=== PATIENT | male | born 1955 | race Caucasian/White ===

== ENCOUNTER → 2018-04-22 10:30 | Outpatient (CLI) | payer BC, SELFPAY ==
--- NOTE | 2018-04-22 10:30 | DT_ITS ---
This patient was seen during an EMR downtime April 15, 2018 - April 22, 2018. This patient may have a combination of paper and electronic documentation or all paper documentation. All documentation is viewable within the e-chart portion of [employer] for each patient visit.
--- NOTE | 2018-04-22 10:30 | DT_ITS ---
This patient was seen during an EMR downtime April 15, 2018 - April 22, 2018. This patient may have a combination of paper and electronic documentation or all paper documentation. All documentation is viewable within the e-chart portion of [employer] for each patient visit.
[2018-04-22 12:29] LABS: Absolute Lymphocyte Count 2.78 X10^3/ul (0.83-4.51); Absolute Neutrophil Count 4.4 X10^3/uL (2.0-7.7); Basophil# 0.03 X10^3/uL; Basophil% 0.4 % (0-1); Eosinophil# 0.28 X10^3/uL; Eosinophils% 3.4 % (0-5); Hemoglobin 15.8 g/dl (13.0-16.5); Lymphocyte # 2.78 X10^3/ul (4.0); Lymphocyte % 33.7 % (19-41); Mean Corp Hgb Conc 33.6 g/gl (32-36); Mean Corpuscular Hgb 34.6 pg (27.0-32.0); Mean Corpuscular Volume 102.8 fL (80-94); Mean Platelet Vol. 10.5 fl (6.2-12.0); Monocyte# 0.74 X10^3/uL; Neutrophil # 4.41 X10^3/uL (2.7-7.7); Neutrophil % 53.3 % (47-70); Platelet Count 227 K/mm3 (150-450); RBC Distribution Width CV 12.1 % (11.6-14.6); RBC Distribution Width SD 45.3 fl (35.1-43.9); Red Blood Count 4.57 M/mm3 (4.6-6.2); White Blood Count 8.3 K/mm3 (4.4-11.0)
[2018-04-22 12:40] LABS: POSITIVE COUNT NO; POSITIVE DIFFERENTIAL NO; POSITIVE MORPHOLOGY NO
[2018-04-22 12:56] LABS: ALB/GLOB Ratio 1.1 RATIO (0.9-2.4); AST(SGOT) 39 U/L (15-37); Alanine Aminotransfer ALT/SGPT 34 U/L (16-61); Albumin, Serum 3.7 g/dL (3.2-5.0); Alkaline Phosphatase 130 U/L (45-117); Anion Gap 10 (5-15); BUN 7 mg/dL (7-18); BUN/Creat Ratio 8.1 RATIO (10-20); Calcium,Total 8.6 mg/dL (8.5-10.1); Chloride 110 mmol/L (98-107); Creatinine, Serum 0.86 mg/dL (0.70-1.30); EST Glomerular Filtration Rate 95 mL/min (>60); Est Glom Filt Rate - Afr Amer 115 mL/min (>60); Globulin 3.4 g/dL (2.2-4.2); Glucose 89 mg/dL (74-106); Potassium 4.2 mmol/L (3.5-5.1); Protein, Total 7.1 g/dL (6.4-8.2); Sodium Level 144 mmol/L (136-145); Uric Acid 5.6 mg/dL (3.5-7.2)
== END ==
PROVIDERS: Family Provider Family Medicine; PCP Family Medicine; Visit Provider Internal Medicine Rheumatology
DX: M06.4 Inflammatory polyarthropathy (principal); M10.00 Idiopathic gout, unspecified site; M17.0 Bilateral primary osteoarthritis of knee
CPT/HCPCS: 36415; 80053; 84550; 85025

== ENCOUNTER 2018-07-08 17:07 | Emergency (ER) | payer BC, SELFPAY ==
[2018-07-08 17:08] VITALS: BP 143/80; PULSE 82; RESP 16; TEMP 37.6; O2SAT 96; BMI 30.1
[2018-07-08] MEDS: Morphine 4 MG/ML Syringe IM (17:48)
[2018-07-08] MEDS: 0.9% Normal Saline 1,000 ML 1000 ML IV (17:48)
[2018-07-08] MEDS: Ondansetron 4 MG/2 ML Vial IV (17:48)
[2018-07-08 18:05] LABS: Absolute Lymphocyte Count 3.21 X10^3/ul (0.83-4.51); Absolute Neutrophil Count 13.3 X10^3/uL (2.0-7.7); Basophil# 0.04 X10^3/uL; Basophil% 0.2 % (0-1); Eosinophil# 0.19 X10^3/uL; Eosinophils% 1.1 % (0-5); Hematocrit 41.7 % (40-54); Hemoglobin 13.5 g/dl (13.0-16.5); Lymphocyte # 3.21 X10^3/ul (4.0); Mean Corp Hgb Conc 32.4 g/gl (32-36); Mean Platelet Vol. 9.4 fl (6.2-12.0); Monocyte# 0.98 X10^3/uL; Monocyte% 5.5 % (0-10); Neutrophil # 13.26 X10^3/uL (2.7-7.7); Neutrophil % 74.5 % (47-70); Platelet Count 319 K/mm3 (150-450); RBC Distribution Width CV 12.5 % (11.6-14.6); RBC Distribution Width SD 46.4 fl (35.1-43.9); Red Blood Count 4.09 M/mm3 (4.6-6.2); White Blood Count 17.8 K/mm3 (4.4-11.0)
[2018-07-08 18:08] LABS: POSITIVE COUNT NO; POSITIVE DIFFERENTIAL NO; POSITIVE MORPHOLOGY NO
[2018-07-08 18:19] LABS: Anion Gap 9 (5-15); BUN 12 mg/dL (7-18); BUN/Creat Ratio 10.9 RATIO (10-20); Calcium,Total 9.2 mg/dL (8.5-10.1); Chloride 106 mmol/L (98-107); EST Glomerular Filtration Rate 71 mL/min (>60); Est Glom Filt Rate - Afr Amer 86 mL/min (>60); Estimated Creatinine Clearance 72.26 ml/min; Glucose 142 mg/dL (74-106); Potassium 3.6 mmol/L (3.5-5.1); Sodium Level 141 mmol/L (136-145)
[2018-07-08] MEDS: Diphth,Pertuss(Acell),Tet Vac 0.5 ML Vial IM (18:42)
[2018-07-08] MEDS: HYDROmorphone 1 MG/ML Syringe IV (18:44)
[2018-07-08 18:47] VITALS: BP 112/64; PULSE 84; RESP 14; O2SAT 94
[2018-07-08 19:10] VITALS: BP 113/66; PULSE 89; RESP 22; O2SAT 96
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
[2018-07-08] MEDS: oxyCODONE 5 MG Tablet 10 MG PO (19:41)
[2018-07-08 19:43] VITALS: BP 111/88; PULSE 85; RESP 19; O2SAT 95
== END 2018-07-08 20:00 | disposition home or self-care (01) ==
LOC: ED 17:38
PROVIDERS: Emergency Provider Emergency Medicine; Family Provider Family Medicine; PCP Family Medicine
DX: S42.191A Fracture of other part of scapula, right shoulder, initial encounter for closed fracture (principal); S22.41XA Multiple fractures of ribs, right side, initial encounter for closed fracture; S00.03XA Contusion of scalp, initial encounter; I10 Essential (primary) hypertension; Z79.899 Other long term (current) drug therapy; V20.0XXA Motorcycle driver injured in collision with pedestrian or animal in nontraffic accident, initial encounter; Y93.55 Activity, bike riding; Y92.410 Unspecified street and highway as the place of occurrence of the external cause; Y99.8 Other external cause status
CPT/HCPCS: 70450; 71250; 72125; 73610; 80048; 85025; 90471; 90715; 96361; 96372; 96374; 96375; 99285; J7030; A4216

== ENCOUNTER 2018-07-09 13:21 | Emergency (ER) | payer BC, SELFPAY ==
[2018-07-09 13:23] VITALS: BP 146/62; PULSE 84; RESP 16; TEMP 37.2; O2SAT 92; BMI 27.6
--- NOTE | 2018-07-09 14:25 | NURSING ---
NO OLD EKGS
[2018-07-09] MEDS: Morphine 4 MG/ML Syringe IV (14:49)
[2018-07-09] MEDS: 0.9% Normal Saline 1,000 ML 150 ML IV (14:49)
[2018-07-09] MEDS: Ondansetron 4 MG/2 ML Vial IV (14:49)
[2018-07-09 14:50] LABS: Absolute Lymphocyte Count 1.23 X10^3/ul (0.83-4.51); Basophil# 0.02 X10^3/uL; Basophil% 0.2 % (0-1); Eosinophil# 0.06 X10^3/uL; Eosinophils% 0.5 % (0-5); Hemoglobin 12.9 g/dl (13.0-16.5); Lymphocyte # 1.23 X10^3/ul (4.0); Lymphocyte % 9.6 % (19-41); Mean Corp Hgb Conc 32.3 g/gl (32-36); Mean Corpuscular Hgb 33.1 pg (27.0-32.0); Mean Corpuscular Volume 102.6 fL (80-94); Mean Platelet Vol. 9.3 fl (6.2-12.0); Monocyte# 1.43 X10^3/uL; Monocyte% 11.2 % (0-10); Neutrophil # 9.99 X10^3/uL (2.7-7.7); POSITIVE COUNT NO; POSITIVE DIFFERENTIAL NO; POSITIVE MORPHOLOGY NO; Platelet Count 253 K/mm3 (150-450); RBC Distribution Width CV 12.8 % (11.6-14.6); RBC Distribution Width SD 47.4 fl (35.1-43.9); White Blood Count 12.8 K/mm3 (4.4-11.0)
[2018-07-09 15:05] LABS: ALB/GLOB Ratio 1.1 RATIO (0.9-2.4); AST(SGOT) 24 U/L (15-37); Alanine Aminotransfer ALT/SGPT 31 U/L (16-61); Albumin, Serum 3.6 g/dL (3.2-5.0); Alkaline Phosphatase 96 U/L (45-117); Anion Gap 11 (5-15); BUN 11 mg/dL (7-18); BUN/Creat Ratio 13.8 RATIO (10-20); Calcium,Total 8.6 mg/dL (8.5-10.1); Chloride 107 mmol/L (98-107); EST Glomerular Filtration Rate 104 mL/min (>60); Est Glom Filt Rate - Afr Amer 126 mL/min (>60); Estimated Creatinine Clearance 99.35 ml/min; Globulin 3.3 g/dL (2.2-4.2); Glucose 107 mg/dL (74-106); Potassium 3.9 mmol/L (3.5-5.1); Protein, Total 6.9 g/dL (6.4-8.2); Sodium Level 142 mmol/L (136-145)
[2018-07-09 15:28] VITALS: BP 142/63; PULSE 80; RESP 17; O2SAT 95
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
--- NOTE | 2018-07-09 16:33 | ED.DEP ---
ED Disposition - Plan for ED Patient: Chief Complaint: Other, Pain/Inj Instructions: ED Fx Rib, Carotid Artery Problems: Blockage Referrals: Arnaldo Agudelo MD [Primary Care Provider] - 3-5 Days
[2018-07-09 16:50] VITALS: BP 145/87; PULSE 85; RESP 15; O2SAT 98
== END 2018-07-09 17:00 | disposition short-term general hospital (02) ==
PROVIDERS: Emergency Provider Emergency Medicine; Family Provider Family Medicine; PCP Family Medicine
DX: I65.23 Occlusion and stenosis of bilateral carotid arteries (principal); R07.89 Other chest pain; S22.41XD Multiple fractures of ribs, right side, subsequent encounter for fracture with routine healing; S42.101D Fracture of unspecified part of scapula, right shoulder, subsequent encounter for fracture with routine healing; V29.9XXD Motorcycle rider (driver) (passenger) injured in unspecified traffic accident, subsequent encounter
CPT/HCPCS: 70498; 71275; 80053; 84484; 85025; 93005; 96361; 96374; 96375; 99284; J7030; Q9967; A4216; J2405

== ENCOUNTER 2018-07-11 08:27 | Emergency (ER) | payer BC, SELFPAY ==
[2018-07-11 08:28] VITALS: BP 184/72; PULSE 96; RESP 30; TEMP 36.8; O2SAT 93; BMI 27.6
[2018-07-11 09:17] VITALS: O2SAT 94
[2018-07-11] MEDS: Ondansetron 4 MG/2 ML Vial IV (09:19)
[2018-07-11] MEDS: morphine 8 MG/ML Syringe 6 MG IV ×2 (09:19→11:05)
[2018-07-11 10:17] VITALS: BP 144/81; PULSE 91; RESP 28; O2SAT 94
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
[2018-07-11 10:37] LABS: Absolute Lymphocyte Count 1.29 X10^3/ul (0.83-4.51); Absolute Neutrophil Count 16.3 X10^3/uL (2.0-7.7); Basophil# 0.03 X10^3/uL; Basophil% 0.2 % (0-1); Eosinophil# 0.02 X10^3/uL; Eosinophils% 0.1 % (0-5); Hematocrit 28.9 % (40-54); Hemoglobin 9.4 g/dl (13.0-16.5); Lymphocyte # 1.29 X10^3/ul (4.0); Lymphocyte % 6.5 % (19-41); Mean Corp Hgb Conc 32.5 g/gl (32-36); Mean Corpuscular Hgb 33.3 pg (27.0-32.0); Mean Corpuscular Volume 102.5 fL (80-94); Mean Platelet Vol. 9.9 fl (6.2-12.0); Neutrophil # 16.32 X10^3/uL (2.7-7.7); Neutrophil % 81.8 % (47-70); Platelet Count 280 K/mm3 (150-450); RBC Distribution Width CV 12.7 % (11.6-14.6); RBC Distribution Width SD 47.6 fl (35.1-43.9); Red Blood Count 2.82 M/mm3 (4.6-6.2); White Blood Count 19.9 K/mm3 (4.4-11.0)
[2018-07-11 10:40] LABS: Differential Indicated SCAN CRITERIA MET; POSITIVE COUNT NO; POSITIVE DIFFERENTIAL YES; POSITIVE MORPHOLOGY NO
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
[2018-07-11 10:45] LABS: Anion Gap 11 (5-15); BUN 20 mg/dL (7-18); BUN/Creat Ratio 12.7 RATIO (10-20); Calcium,Total 8.1 mg/dL (8.5-10.1); Chloride 103 mmol/L (98-107); Creatinine, Serum 1.58 mg/dL (0.70-1.30); EST Glomerular Filtration Rate 47 mL/min (>60); Est Glom Filt Rate - Afr Amer 57 mL/min (>60); Estimated Creatinine Clearance 50.31 ml/min; Glucose 110 mg/dL (74-106); Potassium 4.5 mmol/L (3.5-5.1); Sodium Level 139 mmol/L (136-145)
[2018-07-11 11:09] LABS: Differential Comment SCANNED
[2018-07-11 11:16] VITALS: BP 125/85; PULSE 94; RESP 22; O2SAT 92
[2018-07-11 11:36] VITALS: BP 125/85; PULSE 94; RESP 22; O2SAT 92
== END 2018-07-11 11:39 | disposition short-term general hospital (02) ==
LOC: ED 08:56
PROVIDERS: Emergency Provider Emergency Medicine; Family Provider Family Medicine; PCP Family Medicine
DX: S27.2XXD Traumatic hemopneumothorax, subsequent encounter (principal); R93.5 Abnormal findings on diagnostic imaging of other abdominal regions, including retroperitoneum; S22.41XD Multiple fractures of ribs, right side, subsequent encounter for fracture with routine healing; S42.101D Fracture of unspecified part of scapula, right shoulder, subsequent encounter for fracture with routine healing; I10 Essential (primary) hypertension; M19.90 Unspecified osteoarthritis, unspecified site; Z79.891 Long term (current) use of opiate analgesic; Z79.899 Other long term (current) drug therapy; V29.9XXD Motorcycle rider (driver) (passenger) injured in unspecified traffic accident, subsequent encounter
CPT/HCPCS: 71045; 71250; 74177; 80048; 85025; 93005; 96374; 96375; 96376; 99285; J7050; Q9967; A4216; J2405

== ENCOUNTER → 2018-10-17 11:03 | Outpatient (CLI) | payer BC, SELFPAY ==
[2018-10-17 12:00] LABS: Absolute Lymphocyte Count 2.63 X10^3/ul (0.83-4.51); Absolute Neutrophil Count 4.6 X10^3/uL (2.0-7.7); Basophil# 0.04 X10^3/uL; Basophil% 0.5 % (0-1); Eosinophils% 4.6 % (0-5); Hemoglobin 11.6 g/dl (13.0-16.5); Lymphocyte # 2.63 X10^3/ul (4.0); Lymphocyte % 30.3 % (19-41); Mean Corp Hgb Conc 31.4 g/gl (32-36); Mean Corpuscular Hgb 28.2 pg (27.0-32.0); Mean Corpuscular Volume 89.8 fL (80-94); Mean Platelet Vol. 9.9 fl (6.2-12.0); Monocyte# 0.95 X10^3/uL; Monocyte% 10.9 % (0-10); Neutrophil # 4.64 X10^3/uL (2.7-7.7); Neutrophil % 53.4 % (47-70); Platelet Count 352 K/mm3 (150-450); RBC Distribution Width CV 13.1 % (11.6-14.6); RBC Distribution Width SD 42.1 fl (35.1-43.9); Red Blood Count 4.12 M/mm3 (4.6-6.2); White Blood Count 8.7 K/mm3 (4.4-11.0)
[2018-10-17 12:08] LABS: POSITIVE COUNT NO; POSITIVE DIFFERENTIAL NO; POSITIVE MORPHOLOGY NO
[2018-10-17 12:21] LABS: ALB/GLOB Ratio 1.2 RATIO (0.9-2.4); AST(SGOT) 21 U/L (15-37); Alanine Aminotransfer ALT/SGPT 22 U/L (16-61); Albumin, Serum 3.8 g/dL (3.2-5.0); Alkaline Phosphatase 145 U/L (45-117); Anion Gap 6 (5-15); BUN 14 mg/dL (7-18); BUN/Creat Ratio 16.8 RATIO (10-20); Calcium,Total 8.4 mg/dL (8.5-10.1); Chloride 107 mmol/L (98-107); Creatinine, Serum 0.83 mg/dL (0.70-1.30); EST Glomerular Filtration Rate 99 mL/min (>60); Est Glom Filt Rate - Afr Amer 119 mL/min (>60); Globulin 3.1 g/dL (2.2-4.2); Glucose 106 mg/dL (74-106); Potassium 4.1 mmol/L (3.5-5.1); Protein, Total 6.9 g/dL (6.4-8.2); Sodium Level 139 mmol/L (136-145); Uric Acid 5.1 mg/dL (3.5-7.2)
== END ==
PROVIDERS: Family Provider Family Medicine; PCP Family Medicine; Referring Provider Internal Medicine Rheumatology; Visit Provider Internal Medicine Rheumatology
DX: M06.4 Inflammatory polyarthropathy (principal); M10.00 Idiopathic gout, unspecified site; M17.0 Bilateral primary osteoarthritis of knee
CPT/HCPCS: 36415; 80053; 84550; 85025

== ENCOUNTER → 2019-04-10 | Outpatient (CLI) | payer BC, SELFPAY ==
[2019-04-10 15:46] LABS: Absolute Lymphocyte Count 2.91 X10^3/ul (0.83-4.51); Absolute Neutrophil Count 6.3 X10^3/uL (2.0-7.7); Basophil# 0.04 X10^3/uL; Basophil% 0.4 % (0-1); Eosinophil# 0.44 X10^3/uL; Eosinophils% 4.2 % (0-5); Hematocrit 39.2 % (40-54); Hemoglobin 12.8 g/dl (13.0-16.5); Lymphocyte # 2.91 X10^3/ul (4.0); Mean Corp Hgb Conc 32.7 g/gl (32-36); Mean Corpuscular Hgb 29.5 pg (27.0-32.0); Mean Corpuscular Volume 90.3 fL (80-94); Mean Platelet Vol. 10.9 fl (6.2-12.0); Monocyte# 0.67 X10^3/uL; Monocyte% 6.4 % (0-10); Neutrophil # 6.32 X10^3/uL (2.7-7.7); Neutrophil % 60.7 % (47-70); Platelet Count 324 K/mm3 (150-450); RBC Distribution Width CV 13.9 % (11.6-14.6); Red Blood Count 4.34 M/mm3 (4.6-6.2); White Blood Count 10.4 K/mm3 (4.4-11.0)
[2019-04-10 15:49] LABS: POSITIVE COUNT NO; POSITIVE DIFFERENTIAL NO; POSITIVE MORPHOLOGY NO
[2019-04-10 15:56] LABS: ALB/GLOB Ratio 1.1 RATIO (0.9-2.4); AST(SGOT) 16 U/L (15-37); Alanine Aminotransfer ALT/SGPT 27 U/L (16-61); Albumin, Serum 3.7 g/dL (3.2-5.0); Alkaline Phosphatase 164 U/L (45-117); Anion Gap 7 (5-15); BUN 12 mg/dL (7-18); BUN/Creat Ratio 10.9 RATIO (10-20); Calcium,Total 8.7 mg/dL (8.5-10.1); Chloride 106 mmol/L (98-107); EST Glomerular Filtration Rate 71 mL/min (>60); Est Glom Filt Rate - Afr Amer 86 mL/min (>60); Globulin 3.5 g/dL (2.2-4.2); Glucose 117 mg/dL (74-106); Potassium 3.7 mmol/L (3.5-5.1); Protein, Total 7.2 g/dL (6.4-8.2); Sodium Level 141 mmol/L (136-145); Uric Acid 5.6 mg/dL (3.5-7.2)
== END | disposition home or self-care (01) ==
PROVIDERS: Family Provider Family Medicine; PCP Family Medicine; Referring Provider Internal Medicine Rheumatology; Visit Provider Internal Medicine Rheumatology
DX: M06.4 Inflammatory polyarthropathy (principal); M10.00 Idiopathic gout, unspecified site; M17.0 Bilateral primary osteoarthritis of knee
CPT/HCPCS: 36415; 80053; 84550; 85025

== ENCOUNTER → 2019-04-14 | Outpatient (CLI) | payer BC, SELFPAY ==
--- NOTE | 2019-04-14 09:46 | RAD_ITS ---
STUDY: X-RAY - PELVIS REASON FOR EXAM: Male, 63 years old. Right hip pain TECHNIQUE: One view of the pelvis was obtained. COMPARISON: None. FINDINGS: There is a non-specific bowel gas pattern. Normal visualized soft tissue structures. Lower lumbar fusions and laminectomies. Normal bilateral iliac wings, sacroiliac joints and visualized sacrum. Normal visualized bilateral superior and inferior pubic rami. Normal pubic symphysis. Normal ischial tuberosities. 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 Normal visualized left femoral head. Normal left acetabulum. Normal left hip joint. 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 Electronically Signed: Iker Sapp MD at 10:32 EDT Tel , Service support ,
== END | disposition home or self-care (01) ==
LOC: HPRAD 09:45
PROVIDERS: Family Provider Family Medicine; PCP Family Medicine; Referring Provider Internal Medicine Rheumatology; Visit Provider Internal Medicine Rheumatology
DX: M06.4 Inflammatory polyarthropathy (principal); M10.00 Idiopathic gout, unspecified site; M17.0 Bilateral primary osteoarthritis of knee; I65.23 Occlusion and stenosis of bilateral carotid arteries
CPT/HCPCS: 72170

== ENCOUNTER → 2019-06-18 08:48 | Outpatient (CLI) | payer BC, SELFPAY ==
--- NOTE | 2019-06-18 08:51 | CDU_ITS ---
Reason For Study: STENOSIS Rt. Velocities/BP Lt. Velocities/BP Prox CCA 84/17 cm/sec. Prox CCA 80/16 cm/sec. Mid CCA 57/8 cm/sec. Mid CCA 78/18 cm/sec. Dist CCA 57/15 cm/sec. Dist CCA 60/14 cm/sec. Prox ICA 109/28 cm/sec. Prox ICA 191/51 cm/sec. Mid ICA 188/43 cm/sec. Mid ICA 154/43 cm/sec. Dist ICA 94/25 cm/sec. Dist ICA 79/28 cm/sec. Rt. ICA/CCA = 2.2. Lt. ICA/CCA = 2.4. Prox ICA not well visualized due to Prox ICA not visualized due to acoustic acoustic shadowing. shadowing. Prox ECA 74/11 cm/sec. Prox ECA 115/19 cm/sec. Rt. Vert. 60/18 cm/sec. Lt. Vert. 56/12 cm/sec. Right Extracranial There is heterogeneous, irregular atherosclerotic plaque noted in the right common carotid artery. There is heterogeneous, irregular atherosclerotic plaque noted in the right internal carotid artery. The atherosclerotic plaque causes acoustic shadowing. There is heterogeneous, irregular atherosclerotic plaque noted in the right external carotid artery. The atherosclerotic plaque causes acoustic shadowing. Antegrade flow is noted in the right vertebral artery. Left Extracranial There is heterogeneous, irregular atherosclerotic plaque noted in the left common carotid artery. There is heterogeneous, irregular atherosclerotic plaque noted in the left internal carotid artery. The atherosclerotic plaque causes acoustic shadowing. There is heterogeneous, irregular atherosclerotic plaque noted in the left external carotid artery. Antegrade flow is noted in the left vertebral artery. Procedure Carotid Duplex [id number]. The study was technically difficult. Exam performed in department. Interpretation Summary Moderate (50-69%) stenosis right extracranial internal carotid. Moderate (50-69%) stenosis left extracranial internal carotid. Flow within the vertebral arteries is antegrade bilaterally. Ordering Physician: Robin Gautam Referring Physician: SHARON LACY Performed By: Lydia Donahue, JANETH, RVT
== END ==
PROVIDERS: Family Provider Family Medicine; PCP Family Medicine; Referring Provider Surgery Vascular Surgery; Visit Provider Surgery Vascular Surgery
DX: M19.90 Unspecified osteoarthritis, unspecified site (principal); I10 Essential (primary) hypertension; I65.23 Occlusion and stenosis of bilateral carotid arteries
CPT/HCPCS: 93880

== ENCOUNTER → 2019-07-03 | Outpatient (CLI) | payer BC, SELFPAY ==
[2019-07-03 16:23] LABS: Absolute Lymphocyte Count 3.86 X10^3/uL (0.83-4.51); Absolute Neutrophil Count 8.3 X10^3/uL (2.0-7.7); Basophil# 0.06 X10^3/uL; Basophil% 0.4 % (0-1); Eosinophil# 0.66 X10^3/uL; Eosinophils% 4.8 % (0-5); Hematocrit 39.1 % (40-54); Hemoglobin 12.4 g/dL (13.0-16.5); Lymphocyte # 3.86 X10^3/ul (4.0); Lymphocyte % 28.2 % (19-41); Mean Corp Hgb Conc 31.7 g/dL (32-36); Mean Corpuscular Hgb 30.2 pg (27.0-32.0); Mean Corpuscular Volume 95.1 fL (80-94); Mean Platelet Vol. 9.6 fl (6.2-12.0); Monocyte# 0.67 X10^3/uL; Monocyte% 4.9 % (0-10); NRBC Flagged by Analyzer 0 % (0-5); Neutrophil # 8.32 X10^3/uL (2.7-7.7); Platelet Count 354 K/mm3 (150-450); RBC Distribution Width CV 13.8 % (11.6-14.6); RBC Distribution Width SD 47.8 fl (35.1-43.9); Red Blood Count 4.11 M/mm3 (4.6-6.2); White Blood Count 13.7 K/mm3 (4.4-11.0)
== END | disposition home or self-care (01) ==
LOC: LAB 15:42
PROVIDERS: Family Provider Family Medicine; PCP Family Medicine; Referring Provider Specialist; Visit Provider Specialist
DX: Z01.812 Encounter for preprocedural laboratory examination (principal); M87.051 Idiopathic aseptic necrosis of right femur
CPT/HCPCS: 36415; 85025

== ENCOUNTER 2019-08-06 08:19 | Inpatient (IN) | payer BC, MEDICARE, SELFPAY ==
[2019-07-25 15:09] VITALS: BP 155/69; PULSE 68; RESP 17; TEMP 36.6; O2SAT 95; BMI 36.8
--- NOTE | 2019-07-25 15:40 | SDCEKG_ITS ---
Test Reason : Blood Pressure : / mmHG Vent. Rate : 062 BPM Atrial Rate : 062 BPM P-R Int : 182 ms QRS Dur : 138 ms QT Int : 416 ms P-R-T Axes : 041 047 027 degrees QTc Int : 422 ms Normal sinus rhythm Right bundle branch block Abnormal ECG Confirmed by BROOKE FRIEDMAN, LELA ([id number]), editor in chief newspaper GUILLE CASTELLANO ([id number]) on 07/29/2019 11:42:12 AM [facility] Confirmed By:LELA COX MD
--- NOTE | 2019-07-25 16:15 | RAD_ITS ---
STUDY: X-RAY CHEST REASON FOR EXAM: Male, 63 years old. PRE OP FOR HIP SURGERY. TECHNIQUE: Frontal and lateral views of the chest. COMPARISON: 07/11/2018. FINDINGS: Elevated right hemidiaphragm. Pleural thickening along the periphery of the right hemithorax related to previous rib fractures. No definite infiltrates or effusions. Stable calcified granuloma of the right upper lobe. No gross effusions. Normal size heart. Normal mediastinum and nader. Normal visualized pulmonary arteries. There is atherosclerotic calcification of the aortic arch with tortuosity. There are diffuse degenerative changes of the visualized thoracic spine. Normal visualized ribs, clavicles, and shoulders. There is no demonstrated abnormality of the visualized soft tissue structures of the upper abdomen. RAD/Chest PA and Lateral IMPRESSION: No definite acute abnormality. Pleural-parenchymal scarring in the lower right hemithorax. Electronically Signed: Joseph [facility] MD at 16:47 EDT , Service support ,
[2019-07-25 16:32] LABS: Absolute Neutrophil Count 8.5 X10^3/uL (2.0-7.7); Basophil# 0.07 X10^3/uL; Basophil% 0.5 % (0-1); Eosinophil# 0.72 X10^3/uL; Eosinophils% 5.1 % (0-5); Hematocrit 36.1 % (40-54); Hemoglobin 11.1 g/dL (13.0-16.5); Lymphocyte % 26.2 % (19-41); Mean Corp Hgb Conc 30.7 g/dL (32-36); Mean Corpuscular Hgb 29.4 pg (27.0-32.0); Mean Corpuscular Volume 95.8 fL (80-94); Mean Platelet Vol. 9.8 fl (6.2-12.0); Monocyte# 1.05 X10^3/uL; Monocyte% 7.4 % (0-10); NRBC Flagged by Analyzer 0 % (0-5); Neutrophil % 60.1 % (47-70); Platelet Count 360 K/mm3 (150-450); RBC Distribution Width CV 13.3 % (11.6-14.6); RBC Distribution Width SD 46.5 fl (35.1-43.9); Red Blood Count 3.77 M/mm3 (4.6-6.2); White Blood Count 14.1 K/mm3 (4.4-11.0)
[2019-07-25 16:33] LABS: AST(SGOT) 14 U/L (15-37); Alanine Aminotransfer ALT/SGPT 24 U/L (16-61); Alkaline Phosphatase 129 U/L (45-117); Anion Gap 4 (5-15); BUN 15 mg/dL (7-18); BUN/Creat Ratio 16.5 RATIO (10-20); Bilirubin, Direct 0.09 mg/dL (0.00-0.30); Chloride 108 mmol/L (98-107); Creatinine, Serum 0.91 mg/dL (0.70-1.30); EST Glomerular Filtration Rate 89 mL/min (>60); Est Glom Filt Rate - Afr Amer 108 mL/min (>60); Estimated Creatinine Clearance 83.56 ml/min; Globulin 3.1 g/dL (2.2-4.2); Glucose 94 mg/dL (74-106); Potassium 4.4 mmol/L (3.5-5.1); Protein, Total 7.1 g/dL (6.4-8.2); Sodium Level 141 mmol/L (136-145)
[2019-07-25 17:33] LABS: International Normalized Ratio 1.1; Partial Thromboplast Time 33.4 Seconds (24.1-36.2); Prothrombin Time (Protime)PT. 13.5 SECONDS (11.7-14.9)
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
[2019-08-06] VITALS (14 sets, daily range): BP systolic 110–166; BP diastolic 52–81; PULSE 65–92; RESP 16–18; TEMP 35.8–36.8; O2SAT 95–100; BMI 36.8; BMI 37.0
--- NOTE | 2019-08-06 | IMM_PTH ---
PATIENT: GEOVANI WRIGHT LOC: MS3 U#:[id number] AGE/SX: 63/M ROOM: MS319 RE08/06/[address]: Dr. Flex Rodrigues MD : 1955 BED: 1 DIS: 08/07/2019 SPEC #: [id number] RECD: 08/11/19 12:12 STATUS: RAMIRO REQ #: [id number] TEENA: 08/06/19 00:[address]: Flex Rodrigues DEPT: IMMUNOHISTOCHEMISTRY RECD BY: Kamla Meléndez ENTERED: 08/11/19 12:13 SP TYPE: IMMUNO OTHR DR: Dr. Arnaldo Agudelo MD Tissues: Femur, NOS Procedures: CD20 (add) CD45 (add) CD5 (add) CD79A (add) CD3 (initial) PHYSICIAN & INSTITUTION [place] [address] SPECIMEN INFORMATION: Tissue Source: Right femoral head Clinical Info: Right hip osteoarthritis Specimen Number: [id number] CPT code: 67715, 75564 x4 METHODOLOGY: Deparaffinized sections of prefer/formalin-fixed tissue or PAP/DQ stained slides are incubated with monoclonal/polyclonal antibodies/oligonucleotide probes. Localization is made via biotin free immunoperoxidase method. Appropriate controls are performed and reacted as expected. Results on target cell population are indicated in the following table: RESULTS: ANTIBODY / CLONE RESULT CD3 (PS1) positive CD5 (SP10) positive CD20 (L26) negative CD79a (11E3) positive, a few cells CD45 (RP2/18) positive These tests were developed and their performance characteristics determined by [facility]. They may not have been cleared or approved by the U.S. Food and Drug Administration. The FDA has determined that such clearance or approval is not necessary. The above immunohistochemical/dualISH markers are ordered and reviewed by the pathologist. INTERPRETATION: Right femoral head, total hip replacement/resection: Lymphoid aggregates, predominantly T-cells in nature, favor benign. RAFY:flori 08/12/19
[2019-08-06] MEDS: Acetaminophen 500 MG Tablet 1000 MG PO ×3 (08:59→20:56)
[2019-08-06] MEDS: Scopolamine 1mg/72hr Patch 1 PATCH TRANSDERM. (08:59)
[2019-08-06] MEDS: Celecoxib 200 MG Capsule 400 MG PO (09:00)
[2019-08-06] MEDS: Gabapentin 600 MG Tablet PO (09:01)
[2019-08-06] MEDS: Magnesium Sulfate 4gm/100mL 4 GM/100 ML IV.SOLN. IV (09:06)
[2019-08-06] MEDS: Lactated Ringers 1,000 ML 100 ML IV (09:14)
[2019-08-06 09:21] LABS: Bedside Glucose 127 mg/dL (70-110)
[2019-08-06] MEDS: Cefazolin 2 GM in 0.9% Normal Saline 100 ML IV (10:25)
--- NOTE | 2019-08-06 10:30 | RAD_ITS ---
STUDY: X-RAY - PELVIS AND RIGHT HIP REASON FOR EXAM: Male, 63 years old. Fluoroscopic guided hip replacement TECHNIQUE: 2 fluoroscopic guided views of the pelvis and hip. 5 seconds of fluoroscopic time utilized COMPARISON: None. FINDINGS: Right hip prosthesis noted in anatomic alignment and position.. RAD/Hip 1 view with Pelvis IMPRESSION: Status post right hip prosthesis placement Electronically Signed: Fredis Donohue MD at 21:42 EDT , Service support ,
--- NOTE | 2019-08-06 10:30 | HIP_PTH ---
PATIENT: GEOVANI WRIGHT LOC: MS3 U#:[id number] AGE/SX: 63/M ROOM: MS319 RE08/06/[address]: Dr. Flex Rodrigues MD : 1955 BED: 1 DIS: 08/07/2019 SPEC #: [id number] RECD: 08/06/19 14:09 STATUS: RAMIRO REQ #: [id number] TEENA: 08/06/19 10:[address]: Flex Rodrigues DEPT: SURGICAL PATHOLOGY RECD BY: Lev Abel ENTERED: 08/06/19 14:32 SP TYPE: TOTAL HIP OTHR DR: Dr. Arnaldo Agudelo MD Tissues: Hip, NOS Procedures: Decalcification bone/plaque Surgery Specimen Level IV HEADER OPERATION: ERAS, total hip anterior approach PRE-OP DIAGNOSIS: Right hip osteoarthritis TISSUE SUBMITTED: Right femoral head MICROSCOPIC DIAGNOSIS Right femoral head, total hip replacement/resection: Femoral head with extensive changes consistent with avascular necrosis. Focal degenerative osteoarthritic changes. Lymphoid aggregates, predominantly T-cell in nature, favor benign. See comment. RAFY:flori 08/12/19 COMMENT Immunohistochemistry ([id number]) supports the above diagnosis. Focal acute and chronic inflammation is noted in the area of avascular necrosis. Case has been reviewed in consultation with Dr. Lomeli who concurs with the above diagnosis. IDC:AM MICROSCOPIC DESCRIPTION Slides are reviewed. GROSS DESCRIPTION Received is one container labeled with the patient's name and designated right femoral head. The specimen consists of a ross femoral head measuring 5 x 5 x 5 cm. The portion of femoral neck measures up to 1 cm in length. A portion of articular cartilage is partly disrupted from the underlying bone. Cut sections reveal yellowish surface consistent with avascular fat necrosis. Focal areas of erosion are noted. No soft tissue is identified. Candy Starch [employer]inter sections are submitted in two cassettes after decalcification. / RAFY:flori 08/06/19 TC:5 CPT: 63820, 40197
[2019-08-06] MEDS: dexAMETHasone 10 MG/ML Vial IV (11:00)
--- NOTE | 2019-08-06 11:57 | OP.PCM_ITS ---
Report of Operation Date of Procedure: 08/06/19 Pre-Operative Diagnosis: Right hip primary osteoarthritis Post-Operative Diagnosis: Right hip avascular necrosis with secondary osteoarthritis Surgery/Procedure Performed:: Right direct anterior minimally invasive total hip replacement Description of Surgical Findings:: Stable hip with equal leg length Intraoperatively with removal of the femoral head we noted delamination consistent with subchondral collapse and avascular necrosis. urology physician assistant: Lucas Law Type of Anesthesia:: Spinal Anesthesiologist: Medardo Veronica Special Medications: 2 g Ancef, 1 g TXA at incision, 1 g TXA closure, 10 mg Decadron, joint cocktail (5 mg Duramorph, 30 mL of 0.5% Ropivicaine, 1000 units of epinephrine, 30 mg of Toradol) Specimen's removed: Femoral head was sent for specimen Estimated Blood Loss (mL): 100 mL Fluids Replaced: 800 mL crystalloid Description of Procedure: Components used: 1. Accolade 2 Ramona femoral stem size 11 132? 2. Ramona trident 2 acetabular shell size 58 mm 3. Ramona X3 polyethylene F 4. [place] Biolox delta 36mm, 0mm femoral head Brief history operative indications: 63 yo m who failed conservative measures for their hip osteoarthritis. X-rays were consistent with osteoarthritis including joint space narrowing, osteophyte formation and subchondral cysts. Total hip replacement was discussed with the patient with risks and benefits including but not limited to blood loss, DVTs, PEs, neurovascular damage, dislocation, general risks of anesthesia including loss of life. Patient demonstrated an understanding medical clearance is obtained the patient was consented for surgery. Procedure: On the date of procedure the patient's R hip was marked in the preoperative area. Patient was then taken back to the operating room where anesthesia assumed control of the C-spine and airway and administered anesthetic. Patient was transferred to the operating table and placed in the supine position. The hips were placed at the break of the bed and a sacral bump was placed. The R lower extremity was then prepped out in a sterile fashion using chlorhexidine while the surgeon scrubbed. The PA was vital in the positioning of the patient. Upon reentering the room the R lower extremity was draped in the standard orthopedic fashion and the incision was marked. A timeout was called and everyone agreed upon the side, the site, the procedure be performed, antibody g iven, and patient's identity. At this time incision was made through skin, subcutaneous tissue, and fat down to fascia. The fascia was then incised and the TFL was retracted laterally. A retractor was placed on the lateral border of the femoral neck. Attention was directed to the inferior portion of the approach and all crossing vessels were identified and appropriately coagulated. A retractor was then placed on the medial portion of the femoral neck. The anterior capsule was then cleared of all soft tissue and then H shaped capsulotomy was made. The retractors were then placed inside the capsule. The femoral neck was identified and a cleanup cut was made. At this time a power corkscrew was used to remove the femoral head. Upon removing the femoral head there was delamination of the articular surface consistent with avascular necrosis and subchondral collapse. Attention was then turned toward the acetabulum where the soft tissues were appropriately retracted and the acetabulum was sequentially reamed to 58 mm. A 58 mm cup was then selected and impacted into place. Acetabular liner was impacted into place and locking mechanism was verified. The position of the acetabular cup was then verified under live fluoroscopy. Attention was then turned to the femur. Soft tissue releases on the medial and lateral femoral neck were appropriately done, the leg was externally rotated and lateralized. A Thomas retractor was placed medially and proximally to the greater trochanter this allowed appropriate visualization and exposure of the femoral canal. Rongeour was then used to remove excess lateral bone. A canal finder and entry broach were used to open the proximal canal. Once we verified we were down the femoral canal we subsequently broached up to a size 11 femur. The appropriate neck was placed in the previously selected head was trialed with a 0 mm neck. Traction was pulled and the hip was reduced with internal rotation. Once it was appropriately reduced and stability was checked. There was minimal shuck, equal leg lengths and appropriate stability with hyperextension and external rotation as well as with 90? flexion and internal rotation. Fluoroscopy was then also used to verify the position of the components and leg lengths using the contralateral side for comparison. The trial components were then dislocated the proximal femur was again exposed and the components were removed from the wound. The final components were verified and opened. The wound was copiously irrigated out with normal saline. The acetabulum was checked for any residual debris. The final components were placed and impacted. Traction and internal rotation were again used to reduce the hip. After adequate reduction the hip remained stable with appropriate leg lengths. The final components were once again checked with live fluoroscopy and were found to be satisfactory. The wound was then copiously irrigated with normal saline once more, and hemostasis was obtained. Closure was then done using #1 Vicryl runner to close the fascia. A 2-0 vicryl interuppted sutures were used to close the subcutaneous skin. A 3-0 Monocryl and Steri-Strips were used for final skin closure. A Silverlon dressing was placed. Patient was awakened by anesthesia and transferred to the [facility]. Patient was then transferred to the PACU for recovery. Postoperative plan: Patient will get 24 hours postop antibiotics. Patient will get in-house physical therapy and will be weight-bear as tolerated. Patient will follow up in office in 2 weeks for a wound check and x-rays. Grafts/Implants Used: Ramona - Complications No intraoperative complications - Admit VTE Documentation VTE Present on Admission: No VTE Mechan Device Prophylaxis: SCD's, Thigh High DIANNE Hose VTE Pharm Prophylaxis ordered?: Yes
--- NOTE | 2019-08-06 12:45 | RAD_ITS ---
STUDY: X-RAY - PELVIS AND RIGHT HIP REASON FOR EXAM: Male, 63 years old. Total hip replacement. TECHNIQUE: 2 views of the pelvis and hip. COMPARISON: None. FINDINGS: The patient is status post right hip replacement. There is good alignment. Postoperative soft tissue changes. RAD/Hip Min 2 Views (Portable) IMPRESSION: Status post right total hip replacement. There is good alignment. Postoperative soft tissue changes. Electronically Signed: Vic Melgar, at 13:19 EDT , Service support ,
[2019-08-06] MEDS: Lactated Ringers 1,000 ML 999 ML IV (13:25)
[2019-08-06] MEDS: oxyCODONE 5 MG Tablet PO ×2 (14:48→23:14)
[2019-08-06] MEDS: Ketorolac 15 MG/ML Vial IV ×2 (14:49→20:55)
[2019-08-06] MEDS: Lactated Ringers 1,000 ML 125 ML IV ×2 (14:51→19:12)
[2019-08-06] MEDS: Ensure Surgery 237 ML LIQUID PO (16:29)
[2019-08-06] MEDS: Allopurinol 100 MG Tablet PO (16:29)
[2019-08-06] MEDS: Hydroxychloroquine 200 MG Tablet PO (16:29)
[2019-08-06] MEDS: Cefazolin 1 GM/50 ML BAG IV (18:05)
--- NOTE | 2019-08-06 18:32 | NURSING ---
PT AMBULATORY TO BR W/ WALKER AND SBA-MOVES WELL, HAVING MINIMAL PAIN-SILVER MINER YA INSTRUCTED TO PLEASE CHANGE ICE IN POLAR CARE
[2019-08-06] MEDS: Senna/Docusate Sodium 1 Tablet 2 TABLET PO (20:56)
[2019-08-06] MEDS: Aspirin 81 MG TAB.CHEW PO (20:56)
[2019-08-07] MEDS: Morphine 2 MG/ML Syringe IV (01:00)
[2019-08-07] MEDS: 0.9% NaCl Peripheral Flush Adult/Peds IV ×2 (01:01→02:53)
[2019-08-07] MEDS: Ketorolac 15 MG/ML Vial IV (02:52)
[2019-08-07] MEDS: Cefazolin 1 GM/50 ML BAG IV (02:52)
[2019-08-07] MEDS: oxyCODONE 5 MG Tablet PO ×3 (03:17→11:55)
[2019-08-07 03:54] VITALS: BP 168/73; PULSE 79; RESP 16; TEMP 36.5; O2SAT 97
[2019-08-07] MEDS: Acetaminophen 500 MG Tablet 1000 MG PO (05:03)
[2019-08-07 06:28] LABS: Hematocrit 32.6 % (40-54); Hemoglobin 10.4 g/dL (13.0-16.5); Mean Corp Hgb Conc 31.9 g/dL (32-36); Mean Corpuscular Hgb 30.6 pg (27.0-32.0); Mean Corpuscular Volume 95.9 fL (80-94); Mean Platelet Vol. 9.4 fl (6.2-12.0); Platelet Count 327 K/mm3 (150-450); RBC Distribution Width CV 13.1 % (11.6-14.6); White Blood Count 21.5 K/mm3 (4.4-11.0)
[2019-08-07 06:51] LABS: Anion Gap 5 (5-15); BUN 18 mg/dL (7-18); BUN/Creat Ratio 15.5 RATIO (10-20); Calcium,Total 8.2 mg/dL (8.5-10.1); Chloride 107 mmol/L (98-107); Creatinine, Serum 1.16 mg/dL (0.70-1.30); EST Glomerular Filtration Rate 67 mL/min (>60); Est Glom Filt Rate - Afr Amer 81 mL/min (>60); Estimated Creatinine Clearance 65.55 ml/min; Glucose 155 mg/dL (74-106); Potassium 4.5 mmol/L (3.5-5.1); Sodium Level 137 mmol/L (136-145)
[2019-08-07 07:50] VITALS: BP 159/57; PULSE 89; RESP 18; TEMP 36.5; O2SAT 99
[2019-08-07] MEDS: Hydroxychloroquine 200 MG Tablet PO (07:53)
[2019-08-07] MEDS: Aspirin 81 MG TAB.CHEW PO (07:53)
[2019-08-07] MEDS: Allopurinol 100 MG Tablet PO (07:53)
[2019-08-07] MEDS: Famotidine 20 MG Tablet PO (07:55)
[2019-08-07] MEDS: Meloxicam 7.5 MG Tablet PO (07:55)
[2019-08-07] MEDS: Losartan Potassium 50 MG Tablet PO (07:55)
[2019-08-07] MEDS: Ensure Surgery 237 ML LIQUID PO ×2 (07:59→11:54)
--- NOTE | 2019-08-07 09:43 | PCM.PN.ORT ---
Subjective: The patient was sitting in bedside chair upon examination. Patient denies any chest pain, shortness of breath, dizziness, lightheadedness, nausea or vomiting, or calf pain. Pain is controlled on medications. No adverse overnight events. Overall patient is doing very well. He has tolerated physical therapy very well this morning. He states he did have a rough time with pain last night but that is significantly better today. His pain is very well controlled. Objective: Vital signs stable and afebrile. Patient is able to plantarflex and dorsiflex actively. Sensation is intact to light touch to saphenous, sural, superficial and deep peroneal, and tibial distribution. Dressing is clean dry and intact. Negative Homans bilaterally, negative signs and symptoms of DVT. - Physical Exam General: Alert, Oriented x3, Cooperative, No apparent distress Vital Signs Temp Pulse Resp BP Pulse Ox 97.7 F L 89 18 159/57 H 99 08/07/19 07:50 08/07/19 07:50 08/07/19 07:50 08/07/19 07:50 08/07/19 07:50 Oxygen Flow Rate (L/min) 6 Oxygen Delivery Method Room Air Weight: 117 kg Body Mass Index (BMI) 37.0 Intake and Output for Last 24 Hours 08/05/19 08/06/19 08/07/19 23:59 23:59 23:59 Intake Total 4834.17 / 4834.17 1038.33 / 1038.33 Output Total 1999 Balance 2834.17 / 2834.17 1038.33 / 1038.33 Laboratory Tests Past 24 Hrs 08/07/19 08/07/19 05:54 05:54 WBC 21.5 H RBC 3.40 L Hgb 10.4 L Hct 32.6 L MCV 95.9 H MCH 30.6 MCHC 31.9 L RDW Std Deviation 46.0 H RDW Coeff of Anmol 13.1 Plt Count 327 MPV 9.4 Sodium 137 Potassium 4.5 Chloride 107 Carbon Dioxide 25.0 Anion Gap 5 BUN 18 Creatinine 1.16 Estim Creat Clear Calc 65.55 Est GFR (MDRD) Af Amer 81 Est GFR (MDRD) Non-Af 67 BUN/Creatinine Ratio 15.5 Glucose 155 H Calcium 8.2 L Medical Necessity - Tobacco Use Smoking Status: Former smoker Assessment/Plan 1. S/P direct anterior right total hip arthroplasty POD #1 2. Continue Pain Medications: Tylenol and OxyIR 3. DVT Prophylaxis: Aspirin 81 mg twice daily for 4 weeks postoperatively 4. PT/OT: Weightbearing as tolerated 5. H & H: 10.4/32.6, asymptomatic 6. Reactive leukocytosis: Currently 21.5, afebrile. Patient did receive Decadron intraoperatively 7. Encouraged Incentive Spirometry 8. Disposition: Orthopedically stable, plan will be for discharge home today. Prescriptions will be E scribed to [facility]. Patient will follow-up per postop instructions. He does have outpatient physical therapy established.
--- NOTE | 2019-08-07 09:49 | PCM.DC.THR ---
Discharge Diet: No Restrictions Discharge Activity: May Not Drive - while taking narcotic pain medications. May shower in (days): 1 - Dressing must be intact the skin. Turn dressing away from water Ice area for (Minutes): 20 - Every 1-2 hours while awake Weight Bearing Status: Weight bearing as tolerated Elevate: Operative Extremity Additional Activity Instructions:: Wear elastic stockings for 2 weeks. DO NOT use alcohol with narcotic pain medication. DO NOT make important decisions while taking narcotic medication. If you have problems with taking your medication (rash, itching, nausea, etc.) call the office at once. Call your doctor if your incision/area has: Increased Pain/ Swelling, Increased Redness, Foul Smelling Discharge Call your doctor if you observe: Fever of 101 or Higher Remove Dressing in (days):: 4 - Okay to remove on August 11, 2019 Additional Instructions: Follow orthopedics postop instructions Allergies/Adverse Reactions: Allergies chlorhexidine Allergy (Verified 08/06/19 08:40) Rash amlodipine Adverse Reaction (Verified 08/06/19 08:40) Swelling Medications to take at Discharge Allopurinol [Zyloprim] 100 mg PO BID 07/08/18 Hydroxychloroquine [Plaquenil] 200 mg PO BID 07/08/18 Losartan Potassium [Cozaar] 50 mg PO DAILY 07/25/19 Sildenafil Citrate 20 mg PO PRN PRN 07/25/19 Acetaminophen [Tylenol] 1,000 mg PO Q8 14 Days #100 tab 08/07/19 Aspirin [Aspirin, Baby] 81 mg PO BIDCM 30 Days #60 tab.chew 08/07/19 Famotidine [Pepcid] 20 mg PO DAILY #30 tab 08/07/19 Meloxicam [Mobic] 7.5 mg PO BID #60 tab 08/07/19 Oxycodone [Oxyir] 5 - 10 mg PO Q4H PRN PRN #60 tablet 08/07/19 Senna/Docusate Sodium [Senokot-S] 2 tab PO BID #20 tab 08/07/19 The following prescriptions were given: Aspirin [Aspirin, Baby] 81 mg PO BIDCM 30 Days #60 tab.chew Transmission Status: Pending to [facility] Meloxicam [Mobic] 7.5 mg PO BID #60 tab Transmission Status: Pending to [facility] Oxycodone [Oxyir] 5 - 10 mg PO Q4H PRN PRN #60 tablet PRN Reason: Pain Score 4-10/10 Transmission Status: Sent to [facility] Famotidine [Pepcid] 20 mg PO DAILY #30 tab Transmission Status: Pending to [facility] Senna/Docusate Sodium [Senokot-S] 2 tab PO BID #20 tab Transmission Status: Pending to [facility] Acetaminophen [Tylenol] 1,000 mg PO Q8 14 Days #100 tab Transmission Status: Pending to [facility] Primary Care Physician: Arnaldo Agudelo MD [Primary Care Provider] - Test Results: Test results from this visit will be discussed in further detail at your follow-up appointment, if applicable. Please Follow Up With: Mare Panchal Physical therapy When: 08/11/19 @ 9:30 am Please Follow Up With: Curry Andrade PA-C When: 08/20/19 @ 9:30 am
--- NOTE | 2019-08-07 10:35 | CASEMGMT ---
RN KARENA Face to Face with patient for initial transition planning/care coordination assessment. RN CM introduced self and role at [facility]. Patient sitting in chair, alert and oriented, at bedside. Patient willing to participate in assessment and is able to answer all questions appropriately. Care providers, pharmacy, and demographics verified. Patient wishes to discharge home and is setup with [facility] for outpatient starting on Saturday 08/11. Patient states he has no further needs or concerns at this time. CM to follow for discharge planning needs that may arise. PCP: Jammie Specialists: Joce equipment mechanic specialist; vivienne Rodrigues Preferred Pharmacy: [facility] Insurance: [place] Prescription Benefit: yes Living Will/HPOA: none LNOK: Living Arrangements: Patient lives with in 2 story home with bed and bath on the 1st floor. 3 steps to enter the home with railing Transportation: DME/HHC: Patient states he has raised toilet, walker, cane, grab bars. Disposition Plan: Paitent to discharge home with outpatient therapy, family support, and follow-up plans in place. Eveline PHAM, RN, CM
== END 2019-08-07 12:25 | disposition home or self-care (01) | DRG 470 ==
LOC: ACINP 11:00 → MS3 13:45
PROVIDERS: Anesthesiology; Admitting Provider Specialist; Family Provider Family Medicine; PCP Family Medicine; Referring Provider Specialist; Visit Provider Specialist
PROC: 0SR902Z Replacement of Right Hip Joint with Metal on Polyethylene Synthetic Substitute, Open Approach (ICD-10-PCS; CPT 27284; principal; 2019-08-06 10:05)
DX: M16.11 Unilateral primary osteoarthritis, right hip (principal); M87.9 Osteonecrosis, unspecified; I10 Essential (primary) hypertension; M10.9 Gout, unspecified; Z79.52 Long term (current) use of systemic steroids; Z79.899 Other long term (current) drug therapy; Z79.891 Long term (current) use of opiate analgesic; Z87.891 Personal history of nicotine dependence; D72.828 Other elevated white blood cell count
CPT/HCPCS: 36415; 71046; 73501; 73502; 76000; 80048; 80076; 82962; 85025; 85027; 85610; 85730; 87081; 88305; 88311; 88341; 88342; 93005; 97110; 97162; 97166; 97530; 99251; C1776; J7120; A4216; G0463; J2405

== ENCOUNTER → 2019-10-01 10:23 | Outpatient (CLI) | payer BC, SELFPAY ==
[2019-08-06 14:00] VITALS: BMI 37.0
[2019-10-01 12:24] LABS: Absolute Lymphocyte Count 2.91 X10^3/uL (0.83-4.51); Absolute Neutrophil Count 10.7 X10^3/uL (2.0-7.7); Basophil# 0.07 X10^3/uL; Basophil% 0.5 % (0-1); Eosinophils% 2.6 % (0-5); Hematocrit 38.5 % (40-54); Lymphocyte # 2.91 X10^3/ul (4.0); Mean Corp Hgb Conc 31.2 g/dL (32-36); Mean Corpuscular Hgb 28.8 pg (27.0-32.0); Mean Corpuscular Volume 92.5 fL (80-94); Mean Platelet Vol. 10.5 fl (6.2-12.0); Monocyte# 1.11 X10^3/uL; Monocyte% 7.3 % (0-10); NRBC Flagged by Analyzer 0 % (0-5); Neutrophil # 10.65 X10^3/uL (2.7-7.7); Neutrophil % 69.7 % (47-70); Platelet Count 324 K/mm3 (150-450); RBC Distribution Width SD 43.9 fl (35.1-43.9); Red Blood Count 4.16 M/mm3 (4.6-6.2); White Blood Count 15.3 K/mm3 (4.4-11.0)
[2019-10-01 12:46] LABS: ALB/GLOB Ratio 1.1 RATIO (0.9-2.4); AST(SGOT) 14 U/L (15-37); Alanine Aminotransfer ALT/SGPT 22 U/L (16-61); Albumin, Serum 3.9 g/dL (3.2-5.0); Alkaline Phosphatase 136 U/L (45-117); Anion Gap 7 (5-15); BUN 13 mg/dL (7-18); BUN/Creat Ratio 13.8 RATIO (10-20); Calcium,Total 9.1 mg/dL (8.5-10.1); Chloride 108 mmol/L (98-107); Creatinine, Serum 0.94 mg/dL (0.70-1.30); EST Glomerular Filtration Rate 85 mL/min (>60); Est Glom Filt Rate - Afr Amer 103 mL/min (>60); Globulin 3.4 g/dL (2.2-4.2); Glucose 106 mg/dL (74-106); Protein, Total 7.3 g/dL (6.4-8.2); Sodium Level 140 mmol/L (136-145); Uric Acid 4.8 mg/dL (3.5-7.2)
== END ==
PROVIDERS: Family Provider Family Medicine; PCP Family Medicine; Referring Provider Internal Medicine Rheumatology; Visit Provider Internal Medicine Rheumatology
DX: M06.4 Inflammatory polyarthropathy (principal); M10.00 Idiopathic gout, unspecified site; M17.0 Bilateral primary osteoarthritis of knee; I65.23 Occlusion and stenosis of bilateral carotid arteries; M87.051 Idiopathic aseptic necrosis of right femur
CPT/HCPCS: 36415; 80053; 84550; 85025

== ENCOUNTER → 2020-03-19 | Outpatient (CLI) | payer BC, SELFPAY ==
[2019-08-06 14:00] VITALS: BMI 37.0
[2020-03-19 15:31] LABS: Absolute Lymphocyte Count 3.51 X10^3/uL (0.83-4.51); Absolute Neutrophil Count 7.7 X10^3/uL (2.0-7.7); Basophil# 0.08 X10^3/uL; Basophil% 0.6 % (0-1); Eosinophil# 0.37 X10^3/uL; Eosinophils% 2.8 % (0-5); Hematocrit 36.4 % (40-54); Hemoglobin 10.8 g/dL (13.0-16.5); Lymphocyte # 3.51 X10^3/ul (4.0); Lymphocyte % 26.7 % (19-41); Mean Corp Hgb Conc 29.7 g/dL (32-36); Mean Corpuscular Hgb 25.9 pg (27.0-32.0); Mean Corpuscular Volume 87.3 fL (80-94); Mean Platelet Vol. 11.3 fl (6.2-12.0); Monocyte# 1.31 X10^3/uL; NRBC Flagged by Analyzer 0 % (0-5); Neutrophil # 7.74 X10^3/uL (2.7-7.7); Neutrophil % 58.8 % (47-70); Platelet Count 343 K/mm3 (150-450); RBC Distribution Width CV 16.8 % (11.6-14.6); RBC Distribution Width SD 53.2 fl (35.1-43.9); Red Blood Count 4.17 M/mm3 (4.6-6.2); White Blood Count 13.2 K/mm3 (4.4-11.0)
[2020-03-19 15:49] LABS: ALB/GLOB Ratio 1.2 RATIO (0.9-2.4); AST(SGOT) 12 U/L (15-37); Alanine Aminotransfer ALT/SGPT 17 U/L (16-61); Albumin, Serum 3.7 g/dL (3.2-5.0); Alkaline Phosphatase 92 U/L (45-117); Anion Gap 6 (5-15); BUN 10 mg/dL (7-18); BUN/Creat Ratio 8.4 RATIO (10-20); Calcium,Total 8.8 mg/dL (8.5-10.1); Chloride 108 mmol/L (98-107); Creatinine, Serum 1.19 mg/dL (0.70-1.30); EST Glomerular Filtration Rate 65 mL/min (>60); Est Glom Filt Rate - Afr Amer 79 mL/min (>60); Glucose 108 mg/dL (74-106); Potassium 3.9 mmol/L (3.5-5.1); Protein, Total 6.7 g/dL (6.4-8.2); Sodium Level 142 mmol/L (136-145); Uric Acid 5.6 mg/dL (3.5-7.2)
== END | disposition home or self-care (01) ==
LOC: MTLAB 13:44
PROVIDERS: PCP Family Medicine; Referring Provider Internal Medicine Rheumatology; Visit Provider Internal Medicine Rheumatology
DX: M06.4 Inflammatory polyarthropathy (principal); M10.00 Idiopathic gout, unspecified site; M17.0 Bilateral primary osteoarthritis of knee; M87.051 Idiopathic aseptic necrosis of right femur; I65.23 Occlusion and stenosis of bilateral carotid arteries
CPT/HCPCS: 36415; 80053; 84550; 85025

== ENCOUNTER → 2020-07-28 | Outpatient (CLI) | payer BC, SELFPAY ==
[2019-08-06 14:00] VITALS: BMI 37.0
--- NOTE | 2020-07-28 12:43 | CDU_ITS ---
Reason For Study: Carotid Rt. Velocities/BP Lt. Velocities/BP Prox CCA 99.2/11.5 cm/sec. Prox CCA 101/22.5 cm/sec. Mid CCA 82.7/9.7 cm/sec. Mid CCA 88.2/11.5 cm/sec. Dist CCA 90/17 cm/sec. Dist CCA 65.5/10.2 cm/sec. Prox ICA 106.5/20.6 cm/sec. Prox ICA 246.9/65.5 cm/sec. Mid ICA 152.1/40.7 cm/sec. Mid ICA 110.1/24.3 cm/sec. Dist ICA 121.1/18.8 cm/sec. Dist ICA 112/33.4 cm/sec. Rt. ICA/CCA = 1.69. Lt. ICA/CCA = 2.80. Prox ECA 111.5/11.7 cm/sec. Prox ECA 81.4/7.7 cm/sec. Rt. Vert. 45.4/14.6 cm/sec. Lt. Vert. 53.2/14.5 cm/sec. Right Extracranial There is intimal thickening but no significant atherosclerotic plaque noted in the right common carotid artery. There is heterogeneous, irregular atherosclerotic plaque noted in the right internal carotid artery. The atherosclerotic plaque causes acoustic shadowing. There is intimal thickening but no significant atherosclerotic plaque noted in the right external carotid artery. Antegrade flow is noted in the right vertebral artery. There is heterogeneous, irregular atherosclerotic plaque noted in the right bulb. Left Extracranial There is heterogeneous, irregular atherosclerotic plaque noted in the left common carotid artery. There is heterogeneous, irregular atherosclerotic plaque noted in the left internal carotid artery. The atherosclerotic plaque causes acoustic shadowing. There is intimal thickening but no significant atherosclerotic plaque noted in the left external carotid artery. Antegrade flow is noted in the left vertebral artery. There is heterogeneous, irregular atherosclerotic plaque noted in the left bulb. Procedure Carotid Duplex [id number]. Exam performed in department. Interpretation Summary Moderate (50-69%) stenosis right extracranial internal carotid. Severe (>70%) stenosis left extracranial internal carotid. Flow within the vertebral arteries is antegrade bilaterally. Ordering Physician: Robin Gautam Referring Physician: MD Arnaldo Agudelo Performed By: Eveline Cheng RVT and Student
== END | disposition home or self-care (01) ==
LOC: CVS 12:41
PROVIDERS: PCP Family Medicine; Referring Provider Surgery Vascular Surgery; Visit Provider Surgery Vascular Surgery
DX: I65.23 Occlusion and stenosis of bilateral carotid arteries (principal)
CPT/HCPCS: 93880

== ENCOUNTER → 2020-09-17 09:47 | Outpatient (CLI) | payer BC, SELFPAY ==
[2019-08-06 14:00] VITALS: BMI 37.0
[2020-09-17 12:21] LABS: Absolute Lymphocyte Count 2.19 X10^3/uL (0.83-4.51); Absolute Neutrophil Count 4.5 X10^3/uL (2.0-7.7); Basophil# 0.03 X10^3/uL; Basophil% 0.4 % (0-1); Eosinophil# 0.22 X10^3/uL; Eosinophils% 2.8 % (0-5); Hematocrit 34.2 % (40-54); Hemoglobin 10.2 g/dL (13.0-16.5); Lymphocyte # 2.19 X10^3/ul (4.0); Mean Corp Hgb Conc 29.8 g/dL (32-36); Mean Corpuscular Hgb 26.8 pg (27.0-32.0); Mean Platelet Vol. 10.3 fl (6.2-12.0); Monocyte# 0.84 X10^3/uL; Monocyte% 10.8 % (0-10); NRBC Flagged by Analyzer 0 % (0-5); Neutrophil # 4.48 X10^3/uL (2.7-7.7); Neutrophil % 57.4 % (47-70); Platelet Count 355 K/mm3 (150-450); RBC Distribution Width CV 14.6 % (11.6-14.6); RBC Distribution Width SD 47.9 fl (35.1-43.9); White Blood Count 7.8 K/mm3 (4.4-11.0)
[2020-09-17 12:45] LABS: ALB/GLOB Ratio 1.1 RATIO (0.9-2.4); AST(SGOT) 19 U/L (15-37); Alanine Aminotransfer ALT/SGPT 19 U/L (16-61); Albumin, Serum 3.6 g/dL (3.2-5.0); Alkaline Phosphatase 101 U/L (45-117); Anion Gap 4 (5-15); BUN 11 mg/dL (7-18); BUN/Creat Ratio 9.4 RATIO (10-20); Calcium,Total 8.4 mg/dL (8.5-10.1); Chloride 103 mmol/L (98-107); Creatinine, Serum 1.17 mg/dL (0.70-1.30); EST Glomerular Filtration Rate 66 mL/min (>60); Est Glom Filt Rate - Afr Amer 80 mL/min (>60); Globulin 3.2 g/dL (2.2-4.2); Glucose 92 mg/dL (74-106); Potassium 4.1 mmol/L (3.5-5.1); Protein, Total 6.8 g/dL (6.4-8.2); Sodium Level 135 mmol/L (136-145); Uric Acid 5.4 mg/dL (3.5-7.2)
== END ==
PROVIDERS: PCP Family Medicine; Referring Provider Internal Medicine Rheumatology; Visit Provider Internal Medicine Rheumatology
DX: M06.4 Inflammatory polyarthropathy (principal); M10.00 Idiopathic gout, unspecified site; M17.0 Bilateral primary osteoarthritis of knee; M87.051 Idiopathic aseptic necrosis of right femur; I65.23 Occlusion and stenosis of bilateral carotid arteries
CPT/HCPCS: 36415; 80053; 84550; 85025

== ENCOUNTER → 2021-03-28 13:56 | Outpatient (CLI) | payer OTHER, SELFPAY ==
[2019-08-06 14:00] VITALS: BMI 37.0
[2021-03-28 15:18] LABS: Absolute Lymphocyte Count 3.24 X10^3/uL (0.83-4.51); Absolute Neutrophil Count 7.9 X10^3/uL (2.0-7.7); Basophil# 0.06 X10^3/uL; Basophil% 0.5 % (0-1); Eosinophil# 0.36 X10^3/uL; Eosinophils% 2.9 % (0-5); Hematocrit 39.6 % (40-54); Hemoglobin 12.4 g/dL (13.0-16.5); Lymphocyte # 3.24 X10^3/ul (0.83-4.51); Mean Corp Hgb Conc 31.3 g/dL (32-36); Mean Corpuscular Hgb 29.6 pg (27.0-32.0); Mean Corpuscular Volume 94.5 fL (80-94); Mean Platelet Vol. 9.9 fl (6.2-12.0); Monocyte# 0.85 X10^3/uL; Monocyte% 6.8 % (0-10); NRBC Flagged by Analyzer 0 % (0-5); Neutrophil # 7.89 X10^3/uL (2.7-7.7); Neutrophil % 63.4 % (47-70); Platelet Count 362 K/mm3 (150-450); RBC Distribution Width CV 13.5 % (11.6-14.6); RBC Distribution Width SD 47.2 fl (35.1-43.9); Red Blood Count 4.19 M/mm3 (4.6-6.2); White Blood Count 12.5 K/mm3 (4.4-11.0)
[2021-03-28 15:57] LABS: ALB/GLOB Ratio 1.2 RATIO (0.9-2.4); AST(SGOT) 24 U/L (15-37); Alanine Aminotransfer ALT/SGPT 27 U/L (16-61); Albumin, Serum 3.8 g/dL (3.2-5.0); Alkaline Phosphatase 118 U/L (45-117); Anion Gap 5 (5-15); BUN 16 mg/dL (7-18); BUN/Creat Ratio 14.3 RATIO (10-20); Calcium,Total 8.9 mg/dL (8.5-10.1); Chloride 105 mmol/L (98-107); Creatinine, Serum 1.12 mg/dL (0.70-1.30); EST Glomerular Filtration Rate 69 mL/min (>60); Est Glom Filt Rate - Afr Amer 84 mL/min (>60); Globulin 3.1 g/dL (2.2-4.2); Glucose 91 mg/dL (74-106); Potassium 4.4 mmol/L (3.5-5.1); Protein, Total 6.9 g/dL (6.4-8.2); Sodium Level 140 mmol/L (136-145); Uric Acid 5.1 mg/dL (3.5-7.2)
== END ==
PROVIDERS: PCP Family Medicine; Referring Provider Internal Medicine Rheumatology; Visit Provider Internal Medicine Rheumatology
DX: M06.4 Inflammatory polyarthropathy (principal); M10.00 Idiopathic gout, unspecified site; M17.0 Bilateral primary osteoarthritis of knee; M87.051 Idiopathic aseptic necrosis of right femur; I65.23 Occlusion and stenosis of bilateral carotid arteries
CPT/HCPCS: 36415; 80053; 84550; 85025

== ENCOUNTER → 2021-09-26 09:27 | Outpatient (CLI) | payer OTHER, SELFPAY ==
[2021-09-26 12:28] LABS: Absolute Lymphocyte Count 2.88 X10^3/uL (0.83-4.51); Absolute Neutrophil Count 7.4 X10^3/uL (2.0-7.7); Basophil# 0.06 X10^3/uL; Basophil% 0.5 % (0-1); Eosinophil# 0.41 X10^3/uL; Eosinophils% 3.5 % (0-5); Hematocrit 41.7 % (40-54); Hemoglobin 13.2 g/dL (13.0-16.5); Lymphocyte # 2.88 X10^3/ul (0.83-4.51); Lymphocyte % 24.7 % (19-41); Mean Corp Hgb Conc 31.7 g/dL (32-36); Mean Corpuscular Hgb 29.8 pg (27.0-32.0); Mean Corpuscular Volume 94.1 fL (80-94); Monocyte# 0.85 X10^3/uL; Monocyte% 7.3 % (0-10); NRBC Flagged by Analyzer 0 % (0-5); Neutrophil # 7.41 X10^3/uL (2.7-7.7); Neutrophil % 63.7 % (47-70); Platelet Count 394 K/mm3 (150-450); RBC Distribution Width CV 12.9 % (11.6-14.6); RBC Distribution Width SD 44.6 fl (35.1-43.9); Red Blood Count 4.43 M/mm3 (4.6-6.2); White Blood Count 11.7 K/mm3 (4.4-11.0)
[2021-09-26 12:35] LABS: AST(SGOT) 15 U/L (15-37); Alanine Aminotransfer ALT/SGPT 23 U/L (16-61); Albumin, Serum 3.6 g/dL (3.2-5.0); Alkaline Phosphatase 129 U/L (45-117); Anion Gap 5 (5-15); BUN 11 mg/dL (7-18); BUN/Creat Ratio 10.4 RATIO (10-20); Calcium,Total 9.2 mg/dL (8.5-10.1); Chloride 108 mmol/L (98-107); Creatinine, Serum 1.06 mg/dL (0.70-1.30); EST Glomerular Filtration Rate 74 mL/min (>60); Est Glom Filt Rate - Afr Amer 89 mL/min (>60); Globulin 3.7 g/dL (2.2-4.2); Glucose 103 mg/dL (74-106); Potassium 4.7 mmol/L (3.5-5.1); Protein, Total 7.3 g/dL (6.4-8.2); Sodium Level 139 mmol/L (136-145); Uric Acid 4.6 mg/dL (3.5-7.2)
== END ==
PROVIDERS: PCP Family Medicine; Referring Provider Internal Medicine Rheumatology; Visit Provider Internal Medicine Rheumatology
DX: M06.4 Inflammatory polyarthropathy (principal); M10.00 Idiopathic gout, unspecified site; M17.0 Bilateral primary osteoarthritis of knee; M87.051 Idiopathic aseptic necrosis of right femur; I65.23 Occlusion and stenosis of bilateral carotid arteries
CPT/HCPCS: 36415; 80053; 84550; 85025

== ENCOUNTER → 2022-03-27 | Outpatient (CLI) | payer BC, SELFPAY ==
[2022-03-27 12:27] LABS: Absolute Lymphocyte Count 2.72 X10^3/uL (0.83-4.51); Basophil# 0.04 X10^3/uL; Basophil% 0.4 % (0-1); Eosinophil# 0.35 X10^3/uL; Eosinophils% 3.9 % (0-5); Hematocrit 40.1 % (40-54); Hemoglobin 12.7 g/dL (13.0-16.5); Lymphocyte # 2.72 X10^3/ul (0.83-4.51); Lymphocyte % 30.6 % (19-41); Mean Corp Hgb Conc 31.7 g/dL (32-36); Mean Corpuscular Hgb 30.8 pg (27.0-32.0); Mean Corpuscular Volume 97.3 fL (80-94); Mean Platelet Vol. 10.5 fl (6.2-12.0); Monocyte# 0.75 X10^3/uL; Monocyte% 8.4 % (0-10); NRBC Flagged by Analyzer 0 % (0-5); Neutrophil # 5.01 X10^3/uL (2.7-7.7); Neutrophil % 56.5 % (47-70); Platelet Count 270 K/mm3 (150-450); RBC Distribution Width CV 13.2 % (11.6-14.6); RBC Distribution Width SD 47.1 fl (35.1-43.9); Red Blood Count 4.12 M/mm3 (4.6-6.2); White Blood Count 8.9 K/mm3 (4.4-11.0)
[2022-03-27 12:35] LABS: ALB/GLOB Ratio 1.3 RATIO (0.9-2.4); AST(SGOT) 19 U/L (15-37); Alanine Aminotransfer ALT/SGPT 27 U/L (16-61); Albumin, Serum 3.9 g/dL (3.2-5.0); Alkaline Phosphatase 93 U/L (45-117); Anion Gap 7 (5-15); BUN 14 mg/dL (7-18); BUN/Creat Ratio 13.9 RATIO (10-20); Calcium,Total 8.7 mg/dL (8.5-10.1); Chloride 107 mmol/L (98-107); Creatinine, Serum 1.01 mg/dL (0.70-1.30); EST Glomerular Filtration Rate 78 mL/min (>60); Est Glom Filt Rate - Afr Amer 94 mL/min (>60); Globulin 2.9 g/dL (2.2-4.2); Glucose 105 mg/dL (74-106); Potassium 4.4 mmol/L (3.5-5.1); Protein, Total 6.8 g/dL (6.4-8.2); Sodium Level 140 mmol/L (136-145); Uric Acid 4.8 mg/dL (3.5-7.2)
== END | disposition home or self-care (01) ==
LOC: MTLAB 10:07
PROVIDERS: PCP Family Medicine; Referring Provider Internal Medicine Rheumatology; Visit Provider Internal Medicine Rheumatology
DX: M06.4 Inflammatory polyarthropathy (principal); M87.051 Idiopathic aseptic necrosis of right femur; M10.00 Idiopathic gout, unspecified site; M17.0 Bilateral primary osteoarthritis of knee; I65.23 Occlusion and stenosis of bilateral carotid arteries
CPT/HCPCS: 36415; 80053; 84550; 85025

== ENCOUNTER → 2022-09-15 | Outpatient (CLI) | payer BC, SELFPAY ==
[2022-09-15 12:39] LABS: Absolute Lymphocyte Count 3.28 X10^3/uL (0.83-4.51); Absolute Neutrophil Count 5.8 X10^3/uL (2.0-7.7); Basophil# 0.06 X10^3/uL; Basophil% 0.6 % (0-1); Eosinophil# 0.34 X10^3/uL; Eosinophils% 3.3 % (0-5); Hemoglobin 13.8 g/dL (13.0-16.5); Lymphocyte # 3.28 X10^3/ul (0.83-4.51); Lymphocyte % 31.7 % (19-41); Mean Corp Hgb Conc 32.1 g/dL (32-36); Mean Corpuscular Hgb 30.9 pg (27.0-32.0); Mean Corpuscular Volume 96.4 fL (80-94); Mean Platelet Vol. 10.6 fl (6.2-12.0); Monocyte% 8.7 % (0-10); NRBC Flagged by Analyzer 0 % (0-5); Neutrophil # 5.75 X10^3/uL (2.7-7.7); Neutrophil % 55.4 % (47-70); Platelet Count 344 K/mm3 (150-450); RBC Distribution Width CV 12.9 % (11.6-14.6); RBC Distribution Width SD 45.7 fl (35.1-43.9); Red Blood Count 4.46 M/mm3 (4.6-6.2); White Blood Count 10.4 K/mm3 (4.4-11.0)
[2022-09-15 12:56] LABS: ALB/GLOB Ratio 1.4 RATIO (0.9-2.4); AST(SGOT) 21 U/L (15-37); Alanine Aminotransfer ALT/SGPT 34 U/L (16-61); Albumin, Serum 4.1 g/dL (3.2-5.0); Alkaline Phosphatase 95 U/L (45-117); Anion Gap 7 (5-15); BUN 16 mg/dL (7-18); BUN/Creat Ratio 16.4 RATIO (10-20); Calcium,Total 9.6 mg/dL (8.5-10.1); Chloride 105 mmol/L (98-107); Creatinine, Serum 0.97 mg/dL (0.70-1.30); EST Glomerular Filtration Rate 81 mL/min (>60); Est Glom Filt Rate - Afr Amer 98 mL/min (>60); Globulin 2.9 g/dL (2.2-4.2); Glucose 101 mg/dL (74-106); Potassium 4.2 mmol/L (3.5-5.1); Sodium Level 140 mmol/L (136-145)
== END | disposition home or self-care (01) ==
LOC: MTLAB 10:14
PROVIDERS: PCP Family Medicine; Referring Provider Internal Medicine Rheumatology; Visit Provider Internal Medicine Rheumatology
DX: M06.4 Inflammatory polyarthropathy (principal); M87.051 Idiopathic aseptic necrosis of right femur; M10.00 Idiopathic gout, unspecified site; M17.0 Bilateral primary osteoarthritis of knee; I65.23 Occlusion and stenosis of bilateral carotid arteries; Z79.899 Other long term (current) drug therapy
CPT/HCPCS: 36415; 80053; 84550; 85025

== ENCOUNTER → 2023-03-09 | Outpatient (CLI) | payer BC, SELFPAY ==
[2023-03-09 15:36] LABS: Absolute Lymphocyte Count 2.86 X10^3/uL (0.83-4.51); Absolute Neutrophil Count 7.6 X10^3/uL (2.0-7.7); Basophil# 0.07 X10^3/uL; Basophil% 0.6 % (0-1); Eosinophil# 0.39 X10^3/uL; Eosinophils% 3.3 % (0-5); Hematocrit 41.6 % (40-54); Hemoglobin 13.4 g/dL (13.0-16.5); Lymphocyte # 2.86 X10^3/ul (0.83-4.51); Lymphocyte % 23.9 % (19-41); Mean Corp Hgb Conc 32.2 g/dL (32-36); Mean Corpuscular Hgb 31.5 pg (27.0-32.0); Mean Corpuscular Volume 97.7 fL (80-94); Monocyte# 1.04 X10^3/uL; Monocyte% 8.7 % (0-10); NRBC Flagged by Analyzer 0 % (0-5); Neutrophil # 7.58 X10^3/uL (2.7-7.7); Neutrophil % 63.2 % (47-70); Platelet Count 301 K/mm3 (150-450); RBC Distribution Width CV 12.6 % (11.6-14.6); RBC Distribution Width SD 45.2 fl (35.1-43.9); Red Blood Count 4.26 M/mm3 (4.6-6.2)
[2023-03-09 16:20] LABS: ALB/GLOB Ratio 1.2 RATIO (0.9-2.4); AST(SGOT) 21 U/L (15-37); Alanine Aminotransfer ALT/SGPT 29 U/L (16-61); Albumin, Serum 4.1 g/dL (3.2-5.0); Alkaline Phosphatase 115 U/L (45-117); Anion Gap 6 (5-15); BUN 14 mg/dL (7-18); BUN/Creat Ratio 12.6 RATIO (10-20); Calcium,Total 9.1 mg/dL (8.5-10.1); Chloride 103 mmol/L (98-107); Creatinine, Serum 1.11 mg/dL (0.70-1.30); EST Glomerular Filtration Rate 70 mL/min (>60); Est Glom Filt Rate - Afr Amer 84 mL/min (>60); Globulin 3.3 g/dL (2.2-4.2); Glucose 87 mg/dL (74-106); Potassium 4.7 mmol/L (3.5-5.1); Protein, Total 7.4 g/dL (6.4-8.2); Sodium Level 135 mmol/L (136-145); Uric Acid 5.4 mg/dL (3.5-7.2)
== END | disposition home or self-care (01) ==
LOC: MTLAB 11:24
PROVIDERS: PCP Family Medicine; Referring Provider Internal Medicine Rheumatology; Visit Provider Internal Medicine Rheumatology
DX: M06.4 Inflammatory polyarthropathy (principal); M87.051 Idiopathic aseptic necrosis of right femur; M10.00 Idiopathic gout, unspecified site; M17.0 Bilateral primary osteoarthritis of knee; I65.23 Occlusion and stenosis of bilateral carotid arteries; Z79.899 Other long term (current) drug therapy
CPT/HCPCS: 36415; 80053; 84550; 85025

== ENCOUNTER → 2023-04-16 | Outpatient (CLI) | payer BC, SELFPAY ==
--- NOTE | 2023-04-16 13:46 | CDU_ITS ---
Reason For Study: Carotid Stenosis Rt. Velocities/BP Lt. Velocities/BP Prox CCA 85.5/11.8 cm/sec. Prox CCA 75.4/12.7 cm/sec. Mid CCA 65.5/14.9 cm/sec. Mid CCA 68.8/14.9 cm/sec. Dist CCA 72.1/17.1 cm/sec. Dist CCA 72.1/17.1 cm/sec. Prox ICA 62.3/12.7 cm/sec. Prox ICA 69.9/16.0 cm/sec. Mid ICA 122.6/30.0 cm/sec. Mid ICA 191.5/41.2 cm/sec. Dist ICA 79.5/20.9 cm/sec. Dist ICA 128.0/26.6 cm/sec. Rt. ICA/CCA = 1.9. Lt. ICA/CCA = 2.8. Prox ECA 87.5/6.2 cm/sec. Prox ECA 77.6/8.4 cm/sec. Rt. Vert. 27.5/7.5 cm/sec. Lt. Vert. 39.6/13.1 cm/sec. Right Extracranial There is heterogeneous, irregular atherosclerotic plaque noted in the right common carotid artery. There is heterogeneous, irregular atherosclerotic plaque noted in the right internal carotid artery. The atherosclerotic plaque causes acoustic shadowing. There is heterogeneous, irregular atherosclerotic plaque noted in the right external carotid artery. Antegrade flow is noted in the right vertebral artery. There is heterogeneous, irregular atherosclerotic plaque noted in the right bulb. Left Extracranial There is heterogeneous, irregular atherosclerotic plaque noted in the left common carotid artery. There is heterogeneous, irregular atherosclerotic plaque noted in the left internal carotid artery. The atherosclerotic plaque causes acoustic shadowing. There is heterogeneous, irregular atherosclerotic plaque noted in the left external carotid artery. Antegrade flow is noted in the left vertebral artery. There is heterogeneous, irregular atherosclerotic plaque noted in the left bulb. Procedure Carotid Duplex [id number]. The study was technically limited due to extensive acoustic shadowing. The study was technically difficult. Exam performed in department. VL/Carotid Duplex Ultrasound Interpretation Summary Moderate (50-69%) stenosis right extracranial internal carotid. Moderate (50-69 %) stenosis left extracranial internal carotid. Flow within the vertebral arteries is antegrade bilaterally. Ordering Physician: Robin Gautam Referring Physician: MD Arnaldo Agudelo Performed By: Torsten Matthews RVT
== END | disposition home or self-care (01) ==
PROVIDERS: PCP Family Medicine; Referring Provider Surgery Vascular Surgery; Visit Provider Surgery Vascular Surgery
DX: I65.23 Occlusion and stenosis of bilateral carotid arteries (principal)
CPT/HCPCS: 93880

== ENCOUNTER → 2023-07-06 | Outpatient (CLI) | payer BC, SELFPAY ==
[2023-07-06 09:55] LABS: Absolute Lymphocyte Count 2.83 X10^3/uL (0.83-4.51); Absolute Neutrophil Count 4.3 X10^3/uL (2.0-7.7); Basophil# 0.05 X10^3/uL; Basophil% 0.6 % (0-1); Eosinophil# 0.28 X10^3/uL; Eosinophils% 3.5 % (0-5); Hematocrit 42.2 % (40-54); Hemoglobin 13.4 g/dL (13.0-16.5); Lymphocyte # 2.83 X10^3/ul (0.83-4.51); Mean Corp Hgb Conc 31.8 g/dL (32-36); Mean Corpuscular Hgb 30.9 pg (27.0-32.0); Mean Corpuscular Volume 97.5 fL (80-94); Mean Platelet Vol. 10.5 fl (6.2-12.0); Monocyte% 7.4 % (0-10); NRBC Flagged by Analyzer 0 % (0-5); Neutrophil # 4.29 X10^3/uL (2.7-7.7); Neutrophil % 53.1 % (47-70); Platelet Count 313 K/mm3 (150-450); RBC Distribution Width CV 12.5 % (11.6-14.6); RBC Distribution Width SD 45.1 fl (35.1-43.9); Red Blood Count 4.33 M/mm3 (4.6-6.2); White Blood Count 8.1 K/mm3 (4.4-11.0)
[2023-07-06 10:54] LABS: ALB/GLOB Ratio 1.5 RATIO (0.9-2.4); AST(SGOT) 14 U/L (15-37); Alanine Aminotransfer ALT/SGPT 24 U/L (16-61); Albumin, Serum 4.1 g/dL (3.2-5.0); Alkaline Phosphatase 110 U/L (45-117); Anion Gap 7 (5-15); BUN 21 mg/dL (7-18); BUN/Creat Ratio 18.3 RATIO (10-20); Calcium,Total 8.8 mg/dL (8.5-10.1); Chloride 106 mmol/L (98-107); Creatinine, Serum 1.15 mg/dL (0.70-1.30); EST Glomerular Filtration Rate 67 mL/min (>60); Est Glom Filt Rate - Afr Amer 81 mL/min (>60); Globulin 2.8 g/dL (2.2-4.2); Glucose 111 mg/dL (74-106); Potassium 4.3 mmol/L (3.5-5.1); Protein, Total 6.9 g/dL (6.4-8.2); Sodium Level 139 mmol/L (136-145); Uric Acid 4.4 mg/dL (3.5-7.2)
== END | disposition home or self-care (01) ==
LOC: MTLAB 08:51
PROVIDERS: PCP Family Medicine; Referring Provider Internal Medicine Rheumatology; Visit Provider Internal Medicine Rheumatology
DX: M06.4 Inflammatory polyarthropathy (principal); Z79.899 Other long term (current) drug therapy
CPT/HCPCS: 36415; 80053; 84550; 85025

== ENCOUNTER → 2023-11-27 | Outpatient (CLI) | payer BC, SELFPAY ==
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
[2023-11-27 15:50] LABS: Absolute Lymphocyte Count 2.99 X10^3/uL (0.83-4.51); Absolute Neutrophil Count 5.1 X10^3/uL (2.0-7.7); Basophil# 0.06 X10^3/uL; Basophil% 0.7 % (0-1); Eosinophil# 0.31 X10^3/uL; Eosinophils% 3.5 % (0-5); Hematocrit 40.5 % (40-54); Hemoglobin 13.2 g/dL (13.0-16.5); Lymphocyte # 2.99 X10^3/ul (0.83-4.51); Lymphocyte % 33.4 % (19-41); Mean Corp Hgb Conc 32.6 g/dL (32-36); Mean Corpuscular Hgb 31.4 pg (27.0-32.0); Mean Corpuscular Volume 96.2 fL (80-94); Mean Platelet Vol. 10.6 fl (6.2-12.0); Monocyte# 0.51 X10^3/uL; Monocyte% 5.7 % (0-10); NRBC Flagged by Analyzer 0 % (0-5); Neutrophil # 5.07 X10^3/uL (2.7-7.7); Neutrophil % 56.5 % (47-70); Platelet Count 275 K/mm3 (150-450); RBC Distribution Width CV 12.4 % (11.6-14.6); Red Blood Count 4.21 M/mm3 (4.6-6.2)
[2023-11-27 16:46] LABS: ALB/GLOB Ratio 1.7 RATIO (0.9-2.4); AST(SGOT) 16 U/L (15-37); Alanine Aminotransfer ALT/SGPT 26 U/L (16-61); Albumin, Serum 4.5 g/dL (3.2-5.0); Alkaline Phosphatase 108 U/L (45-117); Anion Gap 7 (5-15); BUN 24 mg/dL (7-18); BUN/Creat Ratio 18.6 RATIO (10-20); Calcium,Total 9.1 mg/dL (8.5-10.1); Chloride 108 mmol/L (98-107); Creatinine, Serum 1.29 mg/dL (0.70-1.30); EST Glomerular Filtration Rate 59 mL/min (>60); Est Glom Filt Rate - Afr Amer 71 mL/min (>60); Globulin 2.6 g/dL (2.2-4.2); Glucose 104 mg/dL (74-106); Potassium 4.4 mmol/L (3.5-5.1); Protein, Total 7.1 g/dL (6.4-8.2); Sodium Level 138 mmol/L (136-145); Uric Acid 4.8 mg/dL (3.5-7.2)
== END | disposition home or self-care (01) ==
LOC: MTLAB 11:39
PROVIDERS: PCP Family Medicine; Referring Provider Internal Medicine Rheumatology; Visit Provider Internal Medicine Rheumatology
DX: M06.4 Inflammatory polyarthropathy (principal); Z79.899 Other long term (current) drug therapy
CPT/HCPCS: 36415; 80053; 84550; 85025

== ENCOUNTER → 2024-02-25 | Outpatient (CLI) | payer BC, SELFPAY ==
[2024-02-25 12:41] LABS: Absolute Lymphocyte Count 2.84 X10^3/uL (0.83-4.51); Absolute Neutrophil Count 4.5 X10^3/uL (2.0-7.7); Basophil# 0.05 X10^3/uL; Basophil% 0.6 % (0-1); Eosinophil# 0.31 X10^3/uL; Eosinophils% 3.7 % (0-5); Hematocrit 39.7 % (40-54); Hemoglobin 12.9 g/dL (13.0-16.5); Lymphocyte # 2.84 X10^3/ul (0.83-4.51); Lymphocyte % 33.8 % (19-41); Mean Corp Hgb Conc 32.5 g/dL (32-36); Mean Corpuscular Hgb 31.7 pg (27.0-32.0); Mean Corpuscular Volume 97.5 fL (80-94); Mean Platelet Vol. 10.4 fl (6.2-12.0); Monocyte% 8.3 % (0-10); NRBC Flagged by Analyzer 0 % (0-5); Neutrophil # 4.47 X10^3/uL (2.7-7.7); Neutrophil % 53.4 % (47-70); Platelet Count 340 K/mm3 (150-450); RBC Distribution Width CV 12.6 % (11.6-14.6); Red Blood Count 4.07 M/mm3 (4.6-6.2); White Blood Count 8.4 K/mm3 (4.4-11.0)
[2024-02-25 13:25] LABS: ALB/GLOB Ratio 1.5 RATIO (0.9-2.4); AST(SGOT) 19 U/L (15-37); Alanine Aminotransfer ALT/SGPT 27 U/L (16-61); Albumin, Serum 4.2 g/dL (3.2-5.0); Alkaline Phosphatase 105 U/L (45-117); Anion Gap 6 (5-15); BUN 18 mg/dL (7-18); BUN/Creat Ratio 14.3 RATIO (10-20); Calcium,Total 8.9 mg/dL (8.5-10.1); Chloride 109 mmol/L (98-107); Creatinine, Serum 1.26 mg/dL (0.70-1.30); EST Glomerular Filtration Rate 60 mL/min (>60); Est Glom Filt Rate - Afr Amer 73 mL/min (>60); Globulin 2.8 g/dL (2.2-4.2); Glucose 114 mg/dL (74-106); Potassium 4.3 mmol/L (3.5-5.1); Sodium Level 139 mmol/L (136-145); Uric Acid 5.2 mg/dL (3.5-7.2)
== END | disposition home or self-care (01) ==
LOC: MTLAB 10:12
PROVIDERS: PCP Family Medicine; Referring Provider Internal Medicine Rheumatology; Visit Provider Internal Medicine Rheumatology
DX: M06.4 Inflammatory polyarthropathy (principal); Z79.899 Other long term (current) drug therapy
CPT/HCPCS: 36415; 80053; 84550; 85025

== ENCOUNTER → 2024-08-18 | Outpatient (CLI) | payer BC, SELFPAY ==
[2024-08-18 12:10] LABS: Absolute Lymphocyte Count 2.66 X10^3/uL (0.83-4.51); Absolute Neutrophil Count 5.3 X10^3/uL (2.0-7.7); Basophil# 0.06 X10^3/uL; Basophil% 0.7 % (0-1); Eosinophil# 0.32 X10^3/uL; Eosinophils% 3.6 % (0-5); Hematocrit 41.3 % (40-54); Hemoglobin 13.2 g/dL (13.0-16.5); Lymphocyte # 2.66 X10^3/ul (0.83-4.51); Lymphocyte % 29.7 % (19-41); Mean Corpuscular Hgb 31.7 pg (27.0-32.0); Mean Platelet Vol. 10.5 fl (6.2-12.0); Monocyte# 0.61 X10^3/uL; Monocyte% 6.8 % (0-10); NRBC Flagged by Analyzer 0 % (0-5); Neutrophil # 5.29 X10^3/uL (2.7-7.7); Neutrophil % 58.9 % (47-70); Platelet Count 293 K/mm3 (150-450); RBC Distribution Width CV 12.8 % (11.6-14.6); RBC Distribution Width SD 46.5 fl (35.1-43.9); Red Blood Count 4.17 M/mm3 (4.6-6.2)
[2024-08-18 13:03] LABS: ALB/GLOB Ratio 1.4 RATIO (0.9-2.4); AST(SGOT) 14 U/L (15-37); Alanine Aminotransfer ALT/SGPT 23 U/L (16-61); Albumin, Serum 4.2 g/dL (3.2-5.0); Alkaline Phosphatase 96 U/L (45-117); Anion Gap 5 (5-15); BUN 25 mg/dL (7-18); BUN/Creat Ratio 19.8 RATIO (10-20); Calcium,Total 9.5 mg/dL (8.5-10.1); Chloride 108 mmol/L (98-107); Creatinine, Serum 1.26 mg/dL (0.70-1.30); EST Glomerular Filtration Rate 60 mL/min (>60); Est Glom Filt Rate - Afr Amer 73 mL/min (>60); Globulin 2.9 g/dL (2.2-4.2); Glucose 105 mg/dL (74-106); Potassium 5.3 mmol/L (3.5-5.1); Protein, Total 7.1 g/dL (6.4-8.2); Sodium Level 139 mmol/L (136-145); Uric Acid 5.1 mg/dL (3.5-7.2)
== END | disposition home or self-care (01) ==
PROVIDERS: PCP Family Medicine; Referring Provider Internal Medicine Rheumatology; Visit Provider Internal Medicine Rheumatology
DX: M10.00 Idiopathic gout, unspecified site (principal); M06.4 Inflammatory polyarthropathy; Z79.899 Other long term (current) drug therapy
CPT/HCPCS: 36415; 80053; 84550; 85025

== ENCOUNTER → 2025-01-19 | Outpatient (CLI) | payer BC, SELFPAY ==
[2025-01-19 12:55] LABS: Absolute Lymphocyte Count 2.63 X10^3/uL (0.83-4.51); Absolute Neutrophil Count 4.5 X10^3/uL (2.0-7.7); Basophil# 0.05 X10^3/uL; Basophil% 0.6 % (0-1); Eosinophils% 3.7 % (0-5); Hematocrit 41.9 % (40-54); Hemoglobin 13.9 g/dL (13.0-16.5); Lymphocyte # 2.63 X10^3/ul (0.83-4.51); Lymphocyte % 32.2 % (19-41); Mean Corp Hgb Conc 33.2 g/dL (32-36); Mean Corpuscular Hgb 31.7 pg (27.0-32.0); Mean Corpuscular Volume 95.4 fL (80-94); Mean Platelet Vol. 11.1 fl (6.2-12.0); Monocyte# 0.63 X10^3/uL; Monocyte% 7.7 % (0-10); NRBC Flagged by Analyzer 0 % (0-5); Neutrophil # 4.54 X10^3/uL (2.7-7.7); Neutrophil % 55.4 % (47-70); Platelet Count 264 K/mm3 (150-450); RBC Distribution Width CV 12.7 % (11.6-14.6); RBC Distribution Width SD 44.6 fl (35.1-43.9); Red Blood Count 4.39 M/mm3 (4.6-6.2); White Blood Count 8.2 K/mm3 (4.4-11.0)
[2025-01-19 13:15] LABS: ALB/GLOB Ratio 1.8 RATIO (0.9-2.4); AST(SGOT) 20 U/L (<=37); Alanine Aminotransfer ALT/SGPT 15 U/L (<=46); Albumin, Serum 4.6 g/dL (3.4-4.8); Alkaline Phosphatase 100 U/L (40-129); Anion Gap 14 (5-15); BUN 25 mg/dL (4-19); BUN/Creat Ratio 22.1 RATIO (10-20); Calcium,Total 9.5 mg/dL (7.6-11.0); Carbon Dioxide 20.4 mmol/L (21.0-32.0); Chloride 105 mmol/L (98-108); Creatinine, Serum 1.12 mg/dL (0.70-1.20); EST Glomerular Filtration Rate 70 (>60); Globulin 2.5 g/dL (2.2-4.2); Glucose 115 mg/dL (70-99); Potassium 4.6 mmol/L (3.3-5.1); Protein, Total 7.2 g/dL (5.9-8.4); Sodium Level 139 mmol/L (133-145); Total Bilirubin 0.35 mg/dL (0.00-1.30)
[2025-01-19 14:14] LABS: Uric Acid 5.2 mg/dL (3.5-7.2)
== END | disposition home or self-care (01) ==
LOC: MTLAB 10:46
PROVIDERS: PCP Family Medicine; Referring Provider Internal Medicine Rheumatology; Visit Provider Internal Medicine Rheumatology
DX: M06.4 Inflammatory polyarthropathy (principal); Z79.899 Other long term (current) drug therapy
CPT/HCPCS: 36415; 80053; 84550; 85025

== ENCOUNTER → 2025-07-20 | Outpatient (CLI) | payer BC, SELFPAY ==
[2025-07-20 15:11] LABS: Hematocrit 41.4 % (40-54); Hemoglobin 13.3 g/dL (13.0-16.5); Immature Granulocytes Count 0.090 X10^3/uL (0.0-0.0); Mean Corp Hgb Conc 32.1 g/dL (32-36); Mean Corpuscular Volume 99.0 fL (80-94); Mean Platelet Vol. 11.3 fl (6.2-12.0); NRBC Flagged by Analyzer 0 % (0-5); Platelet Count 246 K/mm3 (150-450); RBC Distribution Width CV 13.1 % (11.6-14.6); RBC Distribution Width SD 47.7 fl (35.1-43.9); Red Blood Count 4.18 M/mm3 (4.6-6.2); White Blood Count 10.1 K/mm3 (4.4-11.0)
[2025-07-20 16:40] LABS: AST(SGOT) 20 U/L (<=37); Alanine Aminotransfer ALT/SGPT 16 U/L (<=46); Albumin, Serum 4.6 g/dL (3.4-4.8); Alkaline Phosphatase 89 U/L (40-129); Anion Gap 11 (5-15); Calcium,Total 9.6 mg/dL (7.6-11.0); Carbon Dioxide 25.3 mmol/L (21.0-32.0); Chloride 104 mmol/L (98-108); Glucose 106 mg/dL (70-99); Potassium 4.9 mmol/L (3.3-5.1)
[2025-07-21 16:09] LABS: BUN 18 mg/dL (4-19); BUN/Creat Ratio 17.7 RATIO (10-20); Globulin 2.5 g/dL (2.2-4.2); Uric Acid 5.3 mg/dL (3.5-7.2)
== END | disposition home or self-care (01) ==
LOC: MTLAB 10:30
PROVIDERS: PCP Family Medicine; Referring Provider Internal Medicine Rheumatology; Visit Provider Internal Medicine Rheumatology
DX: M06.4 Inflammatory polyarthropathy (principal); M10.00 Idiopathic gout, unspecified site; K76.0 Fatty (change of) liver, not elsewhere classified; Z79.899 Other long term (current) drug therapy
CPT/HCPCS: 36415; 80053; 84550; 85025

== ENCOUNTER → 2025-10-12 | Outpatient (CLI) | payer BC, SELFPAY ==
[2025-10-12 15:00] LABS: Hematocrit 41.9 % (40-54); Hemoglobin 13.9 g/dL (13.0-16.5); Immature Granulocytes Count 0.040 X10^3/uL (0.0-0.0); Mean Corp Hgb Conc 33.2 g/dL (32-36); Mean Corpuscular Volume 96.5 fL (80-94); Mean Platelet Vol. 10.3 fl (6.2-12.0); NRBC Flagged by Analyzer 0 % (0-5); Platelet Count 273 K/mm3 (150-450); RBC Distribution Width CV 12.8 % (11.6-14.6); RBC Distribution Width SD 46.0 fl (35.1-43.9); Red Blood Count 4.34 M/mm3 (4.6-6.2); White Blood Count 10.4 K/mm3 (4.4-11.0)
[2025-10-12 15:27] LABS: AST(SGOT) 25 U/L (<=37); Alanine Aminotransfer ALT/SGPT 21 U/L (<=46); Albumin, Serum 4.7 g/dL (3.4-4.8); Alkaline Phosphatase 92 U/L (40-129); Anion Gap 11 (5-15); BUN 19 mg/dL (4-19); BUN/Creat Ratio 16.1 RATIO (10-20); Calcium,Total 10.0 mg/dL (7.6-11.0); Carbon Dioxide 25.2 mmol/L (21.0-32.0); Chloride 103 mmol/L (98-108); Globulin 2.6 g/dL (2.2-4.2); Glucose 110 mg/dL (70-99); Potassium 5.5 mmol/L (3.3-5.1); Uric Acid 5.4 mg/dL (3.5-7.2)
== END | disposition home or self-care (01) ==
LOC: MTLAB 13:10
PROVIDERS: PCP Family Medicine; Referring Provider Internal Medicine Rheumatology; Visit Provider Internal Medicine Rheumatology
DX: M06.4 Inflammatory polyarthropathy (principal); M10.00 Idiopathic gout, unspecified site; Z79.899 Other long term (current) drug therapy
CPT/HCPCS: 36415; 80053; 84550; 85025